=== PATIENT | female | born 1960 | race Caucasian/White ===

== ENCOUNTER 2018-12-25 15:16 | Emergency (ER) | payer OTHER, SELFPAY ==
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
[2018-12-25 15:35] VITALS: BP 166/103; PULSE 101; RESP 16; TEMP 37; O2SAT 96
[2018-12-25 15:53] LABS: Bilirubin Negative (Negative); Blood Negative (Negative); Clarity Clear; Glucose Negative (Negative); Ketones 15 mg/dL (Negative); Leukocyte Esterase Negative (Negative); Nitrite Negative (Negative); Specific Gravity 1.015 (1.005-1.025); Urobilinogen 0.2 EU/dL (Up TO 0.2); pH 5.5 (5-8)
[2018-12-25 15:59] LABS: Abs Immature Grans 0.03 k/cumm (0.0-0.09); Absolute Basophil Count 0.03 k/cumm (0.0-0.2); Absolute Eosinophil Count 0.07 k/cumm (0.0-0.7); Absolute Lymphocyte Count 1.87 k/cumm (1.2-3.4); Absolute Monocyte Count 0.38 k/cumm (0.11-0.7); Basophils % 0.3; Eosinophils % 0.6; HCT 41.9 % (36.0-46.0); HGB 14.1 g/dL (12.0-15.5); Immature Grans % 0.3; Lymphocytes % 16.8; Mean Corp. HGB Concentration 33.7 g/dL (32.0-36.0); Mean Corpuscular Hemoglobin 30.3 pg (27.0-33.0); Mean Corpuscular Volume 90.1 fL (80-95); Mean Platelet Volume 9.3 fL (8.0-11.0); Monocytes % 3.4; Neutrophils % 78.6; Platelet Count 235 x1000/uL (130-400); RBC 4.65 m/cumm (4.00-5.20); RBC Distribution Width 13.8 % (11.7-14.6); White Blood Cell Count 11.16 k/cumm (4.4-10.8)
[2018-12-25 16:09] LABS: Absolute Neutrophil Count 8.77 k/cumm (1.2-6.7)
[2018-12-25 16:12] LABS: ALT 21 U/L (12-78); AST 22 U/L (15-37); Albumin 3.7 g/dL (3.4-5.0); Alkaline Phosphatase 72 U/L (46-116); Bilirubin, Total 0.3 mg/dL (0.2-1.0); Lipase 146 U/L (73-393); Total Protein 6.6 g/dL (6.4-8.2)
[2018-12-25 16:17] LABS: INR 0.9 (0.9-1.1); PTT Activated 21.4 sec (21.0-31.4); Prothrombin Time 9.3 sec (9.3-11.0); Troponin I < 0.02 ng/mL (0.00-0.06)
[2018-12-25] MEDS: fentaNYL 100 MCG/2 ML VIAL 50 MCG IVP (16:33)
[2018-12-25] MEDS: Normal Saline 1,000 ML 1000 ML IV (16:34)
[2018-12-25 16:42] VITALS: PULSE 70; RESP 19; O2SAT 98
[2018-12-25 16:50] VITALS: PULSE 75; RESP 20; O2SAT 98
[2018-12-25] MEDS: Ketorolac 15 MG/ML VIAL (16:53)
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
[2018-12-25 16:59] LABS: ALT 23 U/L (12-78); AST 26 U/L (15-37); Albumin 3.7 g/dL (3.4-5.0); Alkaline Phosphatase 71 U/L (46-116); Anion Gap 12.2 mmol/L (3-11); BUN 14 mg/dL (7-18); Bilirubin, Total 0.3 mg/dL (0.2-1.0); CO2 23.8 mmol/L (21.0-32.0); CREATININE 1.02 mg/dL (0.55-1.02); Calcium 9.2 mg/dL (8.5-10.1); Chloride 104 mmol/L (98-107); Estimated GFR 55.28 (mL/min/1.73m2); Glucose 106 mg/dL (70-100); Potassium 4.1 mmol/L (3.5-5.1); Sodium 140 mmol/L (136-145); Total Protein 6.6 g/dL (6.4-8.2)
[2018-12-25 17:00] VITALS: PULSE 75; RESP 18; O2SAT 99
[2018-12-25 17:05] VITALS: BP 137/79; PULSE 74; PULSE 79; RESP 18; O2SAT 98
[2018-12-25 17:26] VITALS: BP 137/79; PULSE 74; RESP 18; TEMP 37; O2SAT 98
== END 2018-12-25 17:29 | disposition home or self-care (01) ==
LOC: ER 17:11
PROVIDERS: Emergency Provider Emergency Medicine; PCP Physician Assistant Medical
DX: S20.211A Contusion of right front wall of thorax, initial encounter (principal); R07.89 Other chest pain; R10.9 Unspecified abdominal pain; V43.02XA Car driver injured in collision with other type car in nontraffic accident, initial encounter
CPT/HCPCS: 74177; 80053; 80076; 83690; 96361; 96374; 96375; 99285; 71260; 81003; 83735; 84484; 85025; 85610; 85730; 99284; J1885; J3010; J3490

== ENCOUNTER 2019-01-02 08:49 | Emergency (ER) | payer OTHER, SELFPAY ==
[2019-01-02 08:51] VITALS: BP 133/93; PULSE 94; RESP 20; TEMP 36.9; O2SAT 99
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
[2019-01-02] MEDS: Normal Saline 1,000 ML 200 ML IV (09:37)
[2019-01-02 09:41] LABS: Absolute Basophil Count 0.05 k/cumm (0.0-0.2); Absolute Eosinophil Count 0.25 k/cumm (0.0-0.7); Absolute Lymphocyte Count 1.82 k/cumm (1.2-3.4); Absolute Monocyte Count 0.35 k/cumm (0.11-0.7); Absolute Neutrophil Count 3.02 k/cumm (1.2-6.7); Basophils % 0.9; Eosinophils % 4.6; HCT 40.2 % (36.0-46.0); HGB 13.6 g/dL (12.0-15.5); Lymphocytes % 33.2; Mean Corp. HGB Concentration 33.8 g/dL (32.0-36.0); Mean Corpuscular Hemoglobin 30.7 pg (27.0-33.0); Mean Corpuscular Volume 90.7 fL (80-95); Monocytes % 6.4; Neutrophils % 54.9; Platelet Count 244 x1000/uL (130-400); RBC 4.43 m/cumm (4.00-5.20); RBC Distribution Width 13.9 % (11.7-14.6); White Blood Cell Count 5.49 k/cumm (4.4-10.8)
[2019-01-02 09:54] LABS: ALT 18 U/L (12-78); AST 19 U/L (15-37); Albumin 3.6 g/dL (3.4-5.0); Alkaline Phosphatase 75 U/L (46-116); Anion Gap 4.9 mmol/L (3-11); BUN 16 mg/dL (7-18); Bilirubin, Total 0.4 mg/dL (0.2-1.0); CO2 26.1 mmol/L (21.0-32.0); CREATININE 1.03 mg/dL (0.55-1.02); Calcium 8.5 mg/dL (8.5-10.1); Chloride 104 mmol/L (98-107); Estimated GFR 54.66 (mL/min/1.73m2); Glucose 104 mg/dL (70-100); Potassium 4.2 mmol/L (3.5-5.1); Sodium 135 mmol/L (136-145); Total Protein 6.5 g/dL (6.4-8.2)
[2019-01-02] MEDS: Omnipaque 350 MG/ML 100 ML BTL IJ (10:55)
[2019-01-02] MEDS: Omnipaque 350 MG/ML 50 ML BTL IJ (10:56)
[2019-01-02 11:39] VITALS: BP 133/93; PULSE 94; RESP 20; TEMP 36.9; O2SAT 99
== END 2019-01-02 11:41 | disposition home or self-care (01) ==
PROVIDERS: Emergency Provider Emergency Medicine; PCP Physician Assistant Medical
DX: R07.89 Other chest pain (principal); V47.5XXA Car driver injured in collision with fixed or stationary object in traffic accident, initial encounter; Z79.01 Long term (current) use of anticoagulants; Z79.82 Long term (current) use of aspirin
CPT/HCPCS: 36415; 75635; 80053; 96360; 96361; 99285; 85025; 99284; J3490; Q9967

== ENCOUNTER 2019-01-15 07:58 | Emergency (ER) | payer OTHER, SELFPAY ==
[2019-01-15 08:01] VITALS: BP 136/93; PULSE 82; RESP 12; TEMP 37.1; O2SAT 98
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
[2019-01-15 08:50] VITALS: RESP 12
== END 2019-01-15 08:52 | disposition home or self-care (01) ==
PROVIDERS: Emergency Provider Emergency Medicine; PCP Physician Assistant Medical
DX: G90.9 Disorder of the autonomic nervous system, unspecified (principal)
CPT/HCPCS: 99283

== ENCOUNTER 2019-06-13 16:05 | Emergency (ER) | payer MEDICAID, SELFPAY ==
[2019-06-13 16:12] VITALS: BP 161/93; PULSE 74; RESP 16; TEMP 36.5
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
[2019-06-13] MEDS: Acetaminophen 325 MG TAB 650 MG PO (16:41)
[2019-06-13] MEDS: Lidocaine 5% Patch 1 PATCH TP (16:43)
--- NOTE | 2019-06-13 17:24 | DI.VRAD_ITS ---
PROCEDURE INFORMATION: Exam: XR Left Ribs with PA Chest, 3 Views Exam date and time: 06/13/2019 4:35 PM Clinical history: 58 years old, female; Chest wall pain; Left TECHNIQUE: Imaging protocol: XR Left ribs 3 views with PA chest. COMPARISON: CT ABD AORTA CTA W RUNOFF 01/02/2019 10:11 AM FINDINGS: Lungs: Lungs are clear. Pleural space: Mild blunting of the left costophrenic angle. Right costophrenic angle is clear. Heart/Mediastinum: Normal heart silhouette. Vasculature: Ectatic and tortuous aortic root is again identified. Bones/joints: No acute abnormality or aggressive osseous lesion. IMPRESSION: Left costophrenic angle findings could related to atelectasis versus a trace pleural effusion. No other acute thoracic pathology identified. Dictated and Authenticated by: Tom Rice MD. Ordering:DELMA Pascual MD
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
== END 2019-06-13 17:55 | disposition home or self-care (01) ==
PROVIDERS: Emergency Provider Student in an Organized Health Care Education/Training Program; PCP Physician Assistant Medical
DX: S20.212A Contusion of left front wall of thorax, initial encounter (principal); X50.9XXA Other and unspecified overexertion or strenuous movements or postures, initial encounter; I10 Essential (primary) hypertension; Z87.891 Personal history of nicotine dependence
CPT/HCPCS: 71101; 99283

== ENCOUNTER 2019-09-12 15:01 | Outpatient (CLI) | payer MEDICAID, SELFPAY ==
[2019-09-12 15:25] LABS: Absolute Basophil Count 0.03 k/cumm (0.0-0.2); Absolute Eosinophil Count 0.12 k/cumm (0.0-0.7); Absolute Lymphocyte Count 2.24 k/cumm (1.2-3.4); Absolute Monocyte Count 0.39 k/cumm (0.11-0.7); Basophils % 0.5; Eosinophils % 1.9; HCT 42.3 % (36.0-46.0); HGB 14.3 g/dL (12.0-15.5); Lymphocytes % 34.6; Mean Corp. HGB Concentration 33.8 g/dL (32.0-36.0); Mean Corpuscular Hemoglobin 30.5 pg (27.0-33.0); Mean Corpuscular Volume 90.2 fL (80-95); Mean Platelet Volume 9.1 fL (8.0-11.0); Platelet Count 205 x1000/uL (130-400); RBC 4.69 m/cumm (4.00-5.20); RBC Distribution Width 13.2 % (11.7-14.6); White Blood Cell Count 6.48 k/cumm (4.4-10.8)
--- NOTE | 2019-09-12 15:31 | DI.RAD_ITS ---
EXAM: XR CERVICAL SPINE COMP 4-5V CLINICAL HISTORY: NECK PAIN, M54.2 TECHNIQUE: COMPARISON: No exams were available for comparison FINDINGS: Seven views were obtained. The intervertebral disc spaces appear fairly well maintained. There are mild hypertrophic changes of the vertebral endplates and facet joints throughout the cervical region. No compression fracture seen. Neural foramina appear fairly well maintained on oblique views. IMPRESSION: Mild degenerative changes of the cervical spine.
--- NOTE | 2019-09-12 15:36 | DI.RAD_ITS ---
EXAM: XR LUMBAR SPINE COMPLETE CLINICAL HISTORY: LUMBAR RADICULOPATHY, M54.16 COMPARISON: No exams were available for comparison FINDINGS: Five views were obtained. There is a mild left convex lumbar scoliosis. Note is made of a vascular stent, presumably associated with left renal artery. The intervertebral disc spaces are fairly well maintained. Mild hypertrophic spurring of facet joints and vertebral endplates noted throughout the lumbar region. Mild DJD of the SI joints. No evidence of spondylolysis or spondylolisthesis. No fr acture identified. IMPRESSION: Mild degenerative changes of the lumbosacral spine.
[2019-09-12 16:49] LABS: ALT 15 U/L (14-59); AST 17 U/L (15-37); Albumin 3.2 g/dL (3.4-5.0); Alkaline Phosphatase 79 U/L (46-116); Anion Gap 8.1 mmol/L (3-11); BUN 13 mg/dL (7-18); Bilirubin, Total 0.2 mg/dL (0.2-1.0); CO2 26.9 mmol/L (21.0-32.0); CREATININE 1.06 mg/dL (0.55-1.02); Calcium 8.7 mg/dL (8.5-10.1); Chloride 107 mmol/L (98-107); Estimated GFR 52.88 (mL/min/1.73m2); Glucose 109 mg/dL (74-106); Potassium 3.7 mmol/L (3.5-5.1); Sodium 142 mmol/L (136-145); TSH (W/Ref FT4) 1.51 uIU/mL (0.36-3.74); Total Protein 5.9 g/dL (6.4-8.2); Vitamin B12 283 pg/mL (193-986)
== END 2019-09-12 15:21 ==
PROVIDERS: PCP Physician Assistant Medical; Visit Provider Physician Assistant Medical
DX: M54.2 Cervicalgia (principal); M47.812 Spondylosis without myelopathy or radiculopathy, cervical region; M54.16 Radiculopathy, lumbar region; M47.817 Spondylosis without myelopathy or radiculopathy, lumbosacral region; M53.3 Sacrococcygeal disorders, not elsewhere classified
CPT/HCPCS: 36415; 80053; 72050; 72110; 82607; 84443; 85025

== ENCOUNTER 2019-10-14 00:38 | Outpatient (CLI) | payer MEDICAID, SELFPAY ==
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
== END 2019-10-14 00:58 ==
PROVIDERS: PCP Physician Assistant Medical; Visit Provider Physician Assistant Medical
DX: M54.16 Radiculopathy, lumbar region (principal); M79.604 Pain in right leg; M79.605 Pain in left leg; M79.671 Pain in right foot; M79.672 Pain in left foot; N26.1 Atrophy of kidney (terminal)
CPT/HCPCS: 72148

== ENCOUNTER 2019-11-07 10:39 | Emergency (ER) | payer MEDICAID, SELFPAY ==
[2019-11-07 10:44] VITALS: BP 144/86; PULSE 90; RESP 16; TEMP 36.6; O2SAT 96
--- NOTE | 2019-11-07 10:45 | DI.US_ITS ---
EXAM: US LOWER EXTREMITY VENOUS LT CLINICAL HISTORY: L calf pain, no injury, hx of dvt. TECHNIQUE: Left lower extremity venous ultrasound performed using grayscale, color-flow, and spectra l Doppler analysis. COMPARISON: No exams were available for comparison FINDINGS: The left common femoral, femoral and popliteal veins demonstrate normal compressibility, augmentation , and color Doppler. The posterior tibial veins are patent. There is thrombus seen in the left perone al vein. The saphenofemoral junction is patent. IMPRESSION: No DVT. Thrombus seen in the left peroneal vein. Findings were discussed with the emergency departme nt on the date of the examination.
--- NOTE | 2019-11-07 10:49 | W.ED.GENAD ---
Discharge Plan Discharge Details Chief Complaint: Vascular Primary Care Provider: Larissa Cannon ED Provider: Daniel Baron Home Meds and New Rx's Prescriptions: No Action aspirin 81 MG tablet,delayed release (DR/EC) 81 mg PO DAILY RF: 0 ibuprofen [Advil Liqui-Gel] 200 MG capsule 400 mg PO PRN RF: 0 pregabalin [Lyrica] 50 mg Capsule 50 mg PO BID RF: 0 Medical Decision Making 59-year-old female concerned that she may have a DVT. History of clots in 2010, no longer anticoagulated. She appears well, nontoxic. No evidence of tachycardia or hypoxia. Denies any chest pain or shortness of breath. This very well could simply be muscular however certainly need to rule out DVT, will obtain ultrasound. No indication that this is cellulitis. Will obtain CBC, CMP, PT, PTT and INR. Patient signed out at 1124 pending laboratory values and ultrasound. HPI General Mode of arrival: ambulatory. Date/Time Provider Initiated Documentation: 11/07/19 10:40. Limitations to Documentation: no limitations. Information obtained by: patient. HPI Narrative: This is a 59-year-old female who presents to the ER today concerned that she may had a DVT in her left lower extremity. She does report recent travel on a plane from [place] ( Oct 26) as well as in the car more often than usual. She denies any trauma. She has a history of clot in her kidney as well as her aorta, was anticoagulated back in 2010, but not anticoagulated any longer. She has a history of hypertension and headaches. She denies any chest pain or shortness of breath. Denies any rash. Denies fever. She reports the pain is moderate worse with movement and feels like a charley horse. Pain present for 10 days. Patient with a family history of factor V deficiency Related Data Home Medications Medication Instructions Recorded Confirmed aspirin 81 mg PO DAILY tab-cap 04/24/15 11/07/19 ibuprofen [Advil Liqui-Gel] 400 mg PO PRN 09/14/15 11/07/19 pregabalin [Lyrica] 50 mg PO BID 11/07/19 11/07/19 Allergies Allergy/AdvReac Type Severity Reaction Status Date / Time Sulfa (Sulfonamide AdvReac Unknown Nausea Unverified 11/07/19 10:47 Antibiotics) General Stated Complaint: Vascular ORA: 3 Review of Systems Constitutional Constitutional: Denies chills, Denies fatigue, Denies fever(s) and Denies weakness Eyes Eyes: Denies other visual disturbances Cardiovascular Cardiovascular: Denies chest pain and Denies dyspnea Respiratory Respiratory: Denies cough and Denies dyspnea Gastrointestinal Gastrointestinal: Denies abdominal pain Musculoskeletal Musculoskeletal: Denies back pain and Denies tingling Integumentary/Breasts Skin/Breast: Denies rash Neurologic Neurologic: Denies tingling, Reports paresthesias (Patient reports of bilateral lower extremity neuropathy) and Denies weakness Endocrine Endocrine: Denies fatigue Hematologic/Lymphatic Hematologic/Lymphatic: Denies easy bleeding and Denies easy bruising [facility] Social History Smoking/Tobacco Use Status: Former Tobacco Use Alcohol Intake: never Drug use: Never Do you feel safe at home: Yes Do you feel safe in your relationship?: Yes Exam Const General: cooperative, healthy appearing, comfortable and no acute distress Orientation: alert and awake HENGA Head: normal to inspection, normocephalic and atraumatic Mouth: moist mucous membranes Eyes Conjunctivae: conjunctivae normal Neck Neck: normal visual inspection, trachea midline and supple Resp Effort & Inspection: normal respiratory effort Auscultation: clear to auscultation bilaterally Cardio Rate: regular rate Rhythm: regular rhythm Skin General skin exam: no rashes or lesions noted Neuro General: alert and awake Motor: muscle tone normal throughout Sensory Exam: no sensory deficits noted Extrem Right lower extremity: normal to inspection Left lower extremity: full ROM, normal capillary refill and lower leg Details: tenderness (Left posterior mid calf) and other (Neuro, vascular, tendon intact. Positive Homans sign); no erythema, no localized swelling, no palpable cords, edema noted and no pitting edema; no cyanosis and no edema Psych Appearance: grossly normal Mental Status: mental status grossly normal Course Vital Signs Vital signs: Vital Signs Temperature 36.6 C 11/07/19 10:44 Pulse 90 11/07/19 10:44 Respiratory Rate 16 11/07/19 10:44 Blood Pressure 144/86 H 11/07/19 10:44 Pulse Oximetry 96 11/07/19 10:44 Temperature 36.6 C 11/07/19 10:44 Temperature Source Skin 11/07/19 10:44 Pulse 90 11/07/19 10:44 Respiratory Rate 16 11/07/19 10:44 Respiratory Effort Non-Labored 11/07/19 10:44 Blood Pressure 144/86 H 11/07/19 10:44 Blood Pressure Position Sitting 11/07/19 10:44 Pulse Oximetry 96 11/07/19 10:44 Oxygen Delivery Method Room Air 11/07/19 10:44 Oxygen Flow Rate 0 11/07/19 10:44 Pain Level 8 11/07/19 10:44
[2019-11-07 10:50] VITALS: RESP 16
--- NOTE | 2019-11-07 11:33 | ED.GENADUL_ITS ---
Discharge Plan Disposition Patient Disposition: HOME Condition: Stable Discharge Details Chief Complaint: Vascular Clinical Impression: DVT (deep venous thrombosis) Primary Care Provider: Larissa Cannon ED Provider: Milagro Cobos Home Meds and New Rx's Prescriptions: New Eliquis DVT-PE Treat 30D Start 5 mg (74 tabs) tablets,dose pack See Rx Instructions .ROUTE .COMPLEX Qty: 74 RF: 0 Continued aspirin 81 MG tablet,delayed release (DR/EC) 81 mg PO DAILY RF: 0 ibuprofen [Advil Liqui-Gel] 200 MG capsule 400 mg PO PRN RF: 0 pregabalin [Lyrica] 50 mg Capsule 50 mg PO BID RF: 0 Discharge Instructions Instructions: Deep Venous Thrombosis (ED) Additional Instructions: Follow up with primary care provider in 3-5 days. Return to ED sooner if any worsening or concerns. Increase oral fluids. Take medications as directed. Return immediately for any chest pain, shortness of breath or concerns. Referrals: Larissa Cannon PA [Primary Care Provider] - Medical Decision Making Care taken over from SIMONE Green see previously documented HPI and physical. Spoke with technical specialist Vale who reports positive DVT the distal peroneal vein measuring 2.3 cm long. Patient states that she has not been on Plavix x 3 months. She does take an 81 mg aspirin daily. Discussed Eliquis, verbalizes understanding. Patient denies any chest pain or shortness of breath at this time labs are pending. Labs WNL, patient discharged with Eliquis prescription. First dose given in ED. Instructed to follow-up with PCP. Strict return instructions given no return immediately if any shortness of breath or chest pain worsening swelling redness or any concerns, verbalized understanding. HPI General Mode of arrival: ambulatory . Date/Time Provider Initiated Documentation: 11/07/19 10:40 . Limitations to Documentation: no limitations . Information obtained by: patient . Related Data Home Medications Medication Instructions Recorded Confirmed aspirin 81 mg PO DAILY tab-cap 04/24/15 11/07/19 ibuprofen [Advil Liqui-Gel] 400 mg PO PRN 09/14/15 11/07/19 apixaban [Eliquis DVT-PE Treat 30D See Rx Instructions .ROUTE 11/07/19 Start] .COMPLEX #74 dose pk pregabalin [Lyrica] 50 mg PO BID 11/07/19 11/07/19 Previous Rx's Medication Instructions Recorded apixaban [Eliquis DVT-PE Treat 30D See Rx Instructions .ROUTE 11/07/19 Start] .COMPLEX #74 dose pk Allergies Allergy/AdvReac Type Severity Reaction Status Date / Time Sulfa (Sulfonamide AdvReac Unknown Nausea Unverified 11/07/19 10:47 Antibiotics) General Stated Complaint: Vascular ORA: 3 PFSH Social History Smoking/Tobacco Use Status: Former Tobacco Use Alcohol Intake: never Drug use: Never Do you feel safe at home: Yes Do you feel safe in your relationship?: Yes Course Vital Signs Vital signs: Vital Signs Temperature 36.6 C 11/07/19 10:44 Pulse 90 11/07/19 10:44 Respiratory Rate 16 11/07/19 10:44 Blood Pressure 144/86 H 11/07/19 10:44 Pulse Oximetry 96 11/07/19 10:44 Temperature 36.6 C 11/07/19 10:44 Temperature Source Skin 11/07/19 10:44 Pulse 90 11/07/19 10:44 Respiratory Rate 16 11/07/19 10:50 Respiratory Effort Non-Labored 11/07/19 10:50 Respiratory Depth Normal 11/07/19 10:50 Respiratory Pattern Normal 11/07/19 10:50 Blood Pressure 144/86 H 11/07/19 10:44 Blood Pressure Position Sitting 11/07/19 10:44 Pulse Oximetry 96 11/07/19 10:44 Oxygen Delivery Method Room Air 11/07/19 10:44 Oxygen Flow Rate 0 11/07/19 10:44 Pain Level 8 11/07/19 10:50 Sign Out Sign Out Data: Sign Out Comment: Patient pending ultrasound, CBC, CMP and coags. Last updated by Daniel Baron PA at 11/07/19 11:25
[2019-11-07 11:46] LABS: Abs Immature Grans 0.02 k/cumm (0.0-0.09); Absolute Basophil Count 0.02 k/cumm (0.0-0.2); Absolute Eosinophil Count 0.13 k/cumm (0.0-0.7); Absolute Monocyte Count 0.41 k/cumm (0.11-0.7); Absolute Neutrophil Count 4.11 k/cumm (1.2-6.7); Basophils % 0.3; Eosinophils % 1.9; HCT 42.3 % (36.0-46.0); HGB 14.3 g/dL (12.0-15.5); Immature Grans % 0.3 %; Lymphocytes % 31.9; Mean Corp. HGB Concentration 33.8 g/dL (32.0-36.0); Mean Corpuscular Hemoglobin 30.5 pg (27.0-33.0); Mean Corpuscular Volume 90.2 fL (80-95); Mean Platelet Volume 9.2 fL (8.0-11.0); Neutrophils % 59.6; Platelet Count 220 x1000/uL (130-400); RBC 4.69 m/cumm (4.00-5.20); RBC Distribution Width 13.2 % (11.7-14.6); White Blood Cell Count 6.89 k/cumm (4.4-10.8)
[2019-11-07 12:00] LABS: PTT Activated 24.8 sec (21.0-31.4); Prothrombin Time 9.9 sec (9.3-11.0)
[2019-11-07 12:02] LABS: ALT 9 U/L (14-59); AST 13 U/L (15-37); Albumin 3.2 g/dL (3.4-5.0); Alkaline Phosphatase 77 U/L (46-116); Anion Gap 8.2 mmol/L (3-11); BUN 13 mg/dL (7-18); Bilirubin, Total 0.2 mg/dL (0.2-1.0); CO2 26.8 mmol/L (21.0-32.0); CREATININE 0.97 mg/dL (0.55-1.02); Calcium 8.4 mg/dL (8.5-10.1); Chloride 107 mmol/L (98-107); Estimated GFR 58.38 (mL/min/1.73m2); Glucose 93 mg/dL (74-106); Potassium 4.1 mmol/L (3.5-5.1); Sodium 142 mmol/L (136-145); Total Protein 6.1 g/dL (6.4-8.2)
[2019-11-07] MEDS: Apixaban 5 MG TAB 10 MG PO (12:23)
[2019-11-07 12:35] VITALS: BP 144/86; PULSE 90; RESP 16; O2SAT 96
== END 2019-11-07 12:30 | disposition home or self-care (01) ==
PROVIDERS: Physician Assistant; Emergency Provider Registered Nurse Emergency; PCP Physician Assistant Medical
DX: I82.492 Acute embolism and thrombosis of other specified deep vein of left lower extremity (principal); I10 Essential (primary) hypertension
CPT/HCPCS: 36415; 80053; 99284; 85025; 85610; 85730; 93971

== ENCOUNTER 2020-01-17 16:22 | Outpatient (REF) | payer MEDICAID, SELFPAY ==
--- NOTE | 2020-01-17 15:55 | PAPFT_PTH ---
PATIENT: Mandie Escobar LOC: [facility] U#:[id number] AGE/SX: 59/F ROOM: RE01/17/[address]: Melania Sol : 1960 BED: DIS: 01/17/2020 SPEC #: [id number] RECD: 01/20/20 12:22 STATUS: SOCORRO RENevaeh #: [id number] PHIL: 01/17/20 15:[address]: Melania Sol DEPT: [facility] Cytology RECD BY: Ajay Drake Tissues: 1 - CX/ENDOCX FOR PAP SMEARS Procedures: PAP THIN PREP/[facility] Screening Comments: [id number]
== END 2020-01-17 16:42 ==
LOC: LBN 16:22
PROVIDERS: PCP Physician Assistant Medical; Visit Provider Nurse Practitioner Family
DX: Z12.4 Encounter for screening for malignant neoplasm of cervix (principal); Z01.419 Encounter for gynecological examination (general) (routine) without abnormal findings
CPT/HCPCS: 88142

== ENCOUNTER → 2020-08-11 12:09 | Outpatient (REF) | payer MEDICAID, SELFPAY ==
[2020-08-11 20:05] LABS: Ferritin 43 ng/mL (8-252); Vitamin B12 853 pg/mL (193-986)
[2020-08-11 20:06] LABS: Hemoglobin A1C 5.6 % (<5.7)
== END ==
LOC: NCHCN 12:09
PROVIDERS: PCP Physician Assistant Medical; Visit Provider Physician Assistant Medical
DX: G62.9 Polyneuropathy, unspecified (principal)
CPT/HCPCS: 82607; 82728; 83036

== ENCOUNTER → 2020-08-17 01:49 | Outpatient (CLI) | payer MEDICAID, SELFPAY ==
--- NOTE | 2020-08-17 | DI.US_ITS ---
EXAM: US PELVIS TRANSVAGINAL CLINICAL HISTORY: UTERINE FIBROIDS, D25.9, F/U ABNL CT TECHNIQUE: Transabdominal and transvaginal imaging was performed using standard protocol. COMPARISON: US PELVIS TRANSVAG from 12/03/[address] CHEST/ABD/PEL W from 12/25/[address] ABD AORTA CTA W RUNOFF from 01/02/2019 FINDINGS: KIDNEYS: Left renal atrophy.. No evidence of renal calculi. No evidence of hydronephrosis. No renal mass or cyst identified. UTERUS: Anteverted. 6.0 x 4.6 x 4.2 cm Endometrium: Obscured by fibroids. Myometrium: Fibroids are again noted, with the largest measuring 3.1 cm in greatest dimension, slight ly increased from the previous exam where it measured 2.8 cm in greatest dimension. No suspicious fe atures are seen.. Cervix: Unremarkable. OVARIES: Right: Cyst or mass: None. Left: Status post oophorectomy CUL-DE-SAC: Free fluid: None. IMPRESSION: 1. Multiple uterine fibroids, largest measuring 3.1 cm. 2. Unremarkable right ovary. Status post left oophorectomy. 3. Atrophic left kidney. DATA REPOSITORY:
== END ==
PROVIDERS: PCP Physician Assistant Medical; Visit Provider Physician Assistant Medical
DX: D25.9 Leiomyoma of uterus, unspecified (principal); N26.1 Atrophy of kidney (terminal); Z90.721 Acquired absence of ovaries, unilateral
CPT/HCPCS: 76830; 76856

== ENCOUNTER 2021-10-22 04:30 | Outpatient (CLI) | payer MEDICAID, SELFPAY ==
[2021-10-22 12:47] LABS: ALT 21 U/L (14-59); AST 18 U/L (15-37); Albumin 3.2 g/dL (3.4-5.0); Alkaline Phosphatase 80 U/L (46-116); Anion Gap 10.2 mmol/L (3-11); BUN 14 mg/dL (7-18); Bilirubin, Total 0.4 mg/dL (0.2-1.0); CO2 23.8 mmol/L (21.0-32.0); CREATININE 0.9 mg/dL (0.55-1.02); Calcium 8.6 mg/dL (8.5-10.1); Calculated LDL 129 mg/dL (<100); Chloride 105 mmol/L (98-107); Cholesterol 239 mg/dL (<200); Glucose 95 mg/dL (74-106); HDL Cholesterol 94 mg/dL (40-60); Potassium 4.7 mmol/L (3.5-5.1); Sodium 139 mmol/L (136-145); Total Protein 5.9 g/dL (6.4-8.2); Triglyceride 80 mg/dL (<150)
== END 2021-10-22 04:31 | disposition home or self-care (01) ==
LOC: LBO 04:30
PROVIDERS: PCP Physician Assistant Medical; Visit Provider Physician Assistant Medical
DX: I10 Essential (primary) hypertension (principal)
CPT/HCPCS: 36415; 80053; 80061

== ENCOUNTER 2022-01-04 01:51 | Outpatient (CLI) | payer MEDICAID, SELFPAY ==
--- NOTE | 2022-01-04 15:30 | DI.MAMMO_ITS ---
Exam(s) MAMMO SCREENING EXAM: MAMMO SCREENING CLINICAL HISTORY: SCREENING, HEALTH MAINTENANCE EXAM, Z00.8 TECHNIQUE: Mammograms were interpreted according to the usual protocol including computer analysis w Layer CAD system, tomosynthesis and C-view imaging. COMPARISON: 2014 through 2019 FINDINGS: The breasts are composed of scattered fibroglandular densities, Breast Density category B. No suspicious masses or suspicious microcalcifications are seen. No skin thickening or abnormal axillary lymph nodes are seen. There has been no significant change from prior exams. IMPRESSION: BI-RADS Category 1, Negative mammogram Yearly screening mammography is recommended. Breast Density - Category B, scattered fibroglandular densities. A negative radiographic report should not delay biopsy if a dominant or clinically suspicious mass is present. Up to ten percent of cancers are not identified on mammography. A negative report may reinforce clinical impression. Adenosis and dense breasts may obscure an underlying neoplasm. False positive reports average 6 to 10%. Patient will receive a letter notifying them of these results.
== END 2022-01-04 02:11 ==
PROVIDERS: PCP Physician Assistant Medical; Visit Provider Physician Assistant Medical
DX: Z12.31 Encounter for screening mammogram for malignant neoplasm of breast (principal)
CPT/HCPCS: 77063; 77067

== ENCOUNTER 2022-02-11 08:34 | Emergency (ER) | payer MEDICAID, SELFPAY ==
[2022-02-11 08:39] VITALS: BP 108/75; PULSE 66; RESP 16; TEMP 36; O2SAT 99
--- NOTE | 2022-02-11 08:45 | DI.US_ITS ---
Exam(s) US LOWER EXTREMITY VENOUS LT EXAM: US LOWER EXTREMITY VENOUS LT CLINICAL HISTORY: Leg Pain, Hx of DVT TECHNIQUE: Left lower extremity venous ultrasound performed using grayscale, color-flow, and spectra l Doppler analysis. COMPARISON: US US LOWER EXTREMITY VENOUS LT from 11/07/2019 FINDINGS: The left common femoral, femoral and popliteal veins demonstrate normal compressibility, augmentation , and color Doppler. The posterior tibial veins are patent. The saphenofemoral junction is unremarka ble. There is no evidence of a Diallo cyst. The soft tissues are unremarkable. IMPRESSION: 1. No DVT. 2. Results of this exam have been verbally communicated with provider. DATA REPOSITORY:
--- NOTE | 2022-02-11 08:55 | ED.GENADUL_ITS ---
Discharge Plan Disposition Patient Disposition: HOME Condition: Stable Discharge Details Clinical Impression: Left leg pain Primary Care Provider: Larissa Cannon ED Provider: Milagro Cobos Home Meds and New Rx's Prescriptions: Continued aspirin 81 MG tablet,delayed release (DR/EC) 81 mg PO DAILY hydroxyzine pamoate 25 mg capsule 25 mg PO DAILY zolpidem 10 mg tablet 10 mg PO QHS PRN lisinopril 5 mg tablet 10 mg PO DAILY duloxetine 30 mg capsule,delayed release(DR/EC) 30 cap PO DAILY Label Comments: TAKE ONE CAPSULE BY MOUTH ONCE A DAY IN COMBINATION WITH 60 MG CAPSULE doxepin 10 mg capsule 10 mg PO .QHS PRN Label Comments: TAKE 1 TO 2 CAPSULES BY MOUTH AT BEDTIME NEEDED FOR SLEEP eszopiclone 3 mg tablet 3 tab PO .QHS varenicline 1 mg tablet 1 mg PO BID Label Comments: TAKE 1 TABLET BY MOUTH TWICE DAILY Eliquis DVT-PE Treat 30D Start 5 mg (74 tabs) tablets,dose pack See Rx Instructions .ROUTE .COMPLEX Qty: 74 0RF Rx Instructions: take 10 mg by mouth twice daily for 7 days; then 5 mg twice daily Discharge Instructions Instructions: Leg Pain (ED) Additional Instructions: At this time there is no evidence for DVT in your leg. Continue to apply pressure if this relieves the symptoms. Follow up with primary care provider in 3-5 days. Return to ED sooner if any worsening or concerns. Increase oral fluids. Please take Tylenol or Ibuprofen with food every 4-6 hours as needed for pain and swelling. Referrals: Larissa Cannon PA [Primary Care Provider] - 1 week Medical Decision Making US Venous Doppler LLE ordered Preliminary result by US tech, negative for DVT. US negative for DVT, discussed results with patient who verbalized understanding. This text was generated using [employer] dictation system, please disregard any oddities of phrase or misspellings. Imaging Data Radiologic Study: Imaging: Ultrasound Radiologist's impression: EXAM: US LOWER EXTREMITY VENOUS LT CLINICAL HISTORY: Leg Pain, Hx of DVT TECHNIQUE: Left lower extremity venous ultrasound performed using grayscale, color-flow, and spectral Doppler analysis. COMPARISON: US US LOWER EXTREMITY VENOUS LT from 11/07/2019 FINDINGS: The left common femoral, femoral and popliteal veins demonstrate normal compressibility, augmentation, and color Doppler. The posterior tibial veins are patent. The saphenofemoral junction is unremarkable. There is no evidence of a Diallo cyst. The soft tissues are unremarkable. IMPRESSION: 1. No DVT. 2. Results of this exam have been verbally communicated with provider. HPI General Mode of arrival: ambulatory . Date/Time Provider Initiated Documentation: 02/11/22 08:39 . Limitations to Documentation: no limitations . Information obtained by: patient, RN notes reviewed and old records reviewed . HPI Narrative: 61-year-old female presents to the ER with left lower extremity pain for the last 4 days. Patient describes the pain as muscle cramp does not go away she reports that pain is relieved with pressure. Denies any recent injuries. She does have a history of DVT and takes Eliquis daily. Denies any chest pain shortness of breath or any other associated symptoms. Denies any nausea vomiting diarrhea or other muscle cramps. She has a past medical history of protein C deficiency, osteoporosis, hypertension Related Data Home Medications Medication Instructions Recorded Confirmed aspirin 81 mg tablet,delayed 81 mg PO DAILY 04/24/15 02/11/22 release apixaban 5 mg (74 tabs) tablets in See Rx Instructions PO .COMPLEX 11/07/19 02/11/22 a dose pack (Eliquis DVT-PE Treat #74 dose pk 30D Start) hydroxyzine pamoate 25 mg capsule 25 mg PO DAILY 03/23/20 02/11/22 lisinopril 5 mg tablet 10 mg PO DAILY 03/23/20 02/11/22 zolpidem 10 mg tablet 10 mg PO QHS PRN 03/23/20 02/11/22 doxepin 10 mg capsule 10 mg PO .QHS PRN 02/11/22 02/11/22 duloxetine 30 mg capsule,delayed 30 cap PO DAILY 02/11/22 release eszopiclone 3 mg tablet 3 tab PO .QHS 02/11/22 02/11/22 varenicline 1 mg tablet 1 mg PO BID 02/11/22 02/11/22 Previous Rx's Medication Instructions Recorded apixaban 5 mg (74 tabs) tablets in See Rx Instructions PO .COMPLEX 11/07/19 a dose pack (Eliquis DVT-PE Treat #74 dose pk 30D Start) Allergies Allergy/AdvReac Type Severity Reaction Status Date / Time Sulfa (Sulfonamide AdvReac Unknown Nausea Unverified 02/11/22 08:43 Antibiotics) General Stated Complaint: Vascular ORA: 3 Review of Systems All systems reviewed & are unremarkable except as noted in HPI and below Musculoskeletal Musculoskeletal: Reports as per HPI PFSH All Active Problems (Updated 02/11/22 @ 10:01 by Milagro Cobos) Left leg pain (Acute) Protein C deficiency (Acute) Uterine fibroid (Acute) Colon polyp (Acute) PTSD (post-traumatic stress disorder) (Acute) Leg pain, bilateral (Acute) DVT (deep venous thrombosis) (Chronic) Medical History Chronic idiopathic urticaria Grief at loss of child History of neck pain Hypertension Left renal atrophy Lumbar radiculopathy Osteoporosis Protein C deficiency Tobacco abuse Tubular adenoma of colon Vitamin B12 deficiency Vitamin D deficiency Surgical History Colonoscopy - MAC 2007 History of left oophorectomy History of tonsillectomy Oophrectomy, Left 2008 renal stent 2008 Tonsillectomy Family History Father Protein C deficiency Son Substance abuse Hx of hiatal hernia Spherocytosis Daughter Protein C deficiency Factor V Leiden carrier Paternal Grandfather Thyroid disorder Paternal Grandmother Colon cancer Other Diabetes Factor V Leiden Protein S deficiency Social History Smoking/Tobacco Use Status: Former Tobacco Use Smoking risk assessment performed?: Yes Alcohol Intake: never Drug use: Never Household members: none Housing: house Number of Children: 2 current occupation: Teacher Pets and animals: Yes Pets and animals: dog(s) What is your relationship status?: Panel score (0-1 are the most socially isolated patients): 0 What type of physical activity do you participate in: walking Frequency: 5-6 times per week Seatbelt use: always Do you feel safe at home: Yes Do you feel safe in your relationship?: Yes Exam Narrative Exam Narrative: Constitutional: Alert and oriented x3. Appears stated age. Normal body habitus. Head: Normocephalic, no trauma. Eyes: Pupils PERRL, Red reflex noted, EOM's intact. Eyelids symmetrical without lesions, discharge, or swelling. ENT: Bilateral TM's WNL, External ear normal to inspection, no mastoid TTP, swelling, or erythema, Nasal turbinates WNL, no nasal discharge. Normal dentition, Posterior pharynx WNL, no exudate. Chest: RRR, Normal S1, S2, distal pulses intact. Resp: Lungs clear to auscultation bilaterally, no wheezes, rales, or rhonchi. Abdomen: Soft, non-distended, Normoactive bowel sounds all 4 quads. Musculoskeletal: Normal gait, 5/5 strength to all four extremities. Skin: No suspicious rashes or lesions. Capillary refill less than 2 sec. Neurologic: Cranial nerves II-XII intact. Alert and oriented x 3. Motor: No def icits noted. Sensory: Intact bilaterally all 4 extremities. Reflexes: DTR's intact bilaterally.. Hematologic/Lymphatic: No ecchymosis, no lymphadenopathy. Course Vital Signs Vital signs: Vital Signs Temperature 36 C L 02/11/22 08:39 Pulse 66 02/11/22 08:39 Respiratory Rate 16 02/11/22 08:39 Blood Pressure 108/75 02/11/22 08:39 Pulse Oximetry 99 02/11/22 08:39 Temperature 36 C L 02/11/22 08:39 Temperature Source Temporal Artery Scan 02/11/22 08:39 Pulse 66 02/11/22 08:39 Respiratory Rate 16 02/11/22 08:39 Respiratory Effort 02/11/22 08:39 Blood Pressure 108/75 02/11/22 08:39 Blood Pressure Position Sitting 02/11/22 08:39 Pulse Oximetry 99 02/11/22 08:39 Oxygen Delivery Method Room Air 02/11/22 08:39 Oxygen Flow Rate 0 02/11/22 08:39 Pain Level 2 02/11/22 08:39
[2022-02-11 09:02] VITALS: RESP 16
== END 2022-02-11 10:13 | disposition home or self-care (01) ==
PROVIDERS: Emergency Provider Registered Nurse Emergency; PCP Physician Assistant Medical
DX: M79.662 Pain in left lower leg (principal)
CPT/HCPCS: 99284; 93971; 99283

== ENCOUNTER 2022-08-05 14:14 | Outpatient (REF) | payer MEDICAID, SELFPAY ==
[2022-08-05 16:00] LABS: Abs Immature Grans 0.01 10^3/uL (0.0-0.06); Absolute Basophil Count 0.04 10^3/uL (0.0-0.2); Absolute Eosinophil Count 0.12 10^3/uL (0.0-0.7); Absolute Lymphocyte Count 1.78 10^3/uL (1.2-3.4); Absolute Monocyte Count 0.26 10^3/uL (0.1-0.8); Absolute Neutrophil Count 3.11 10^3/uL (1.2-6.7); Basophils % 0.8; Eosinophils % 2.3; HCT 43.9 % (36.0-46.0); HGB 14.4 g/dL (11.2-15.7); Immature Grans % 0.2; Lymphocytes % 33.5; MCH 29.5 pg (27.0-33.0); MCHC 32.8 % (32.0-36.0); MCV 90 fL (80-95); MPV 9.6 fL (8.0-11.0); Monocytes % 4.9; Neutrophils % 58.3; Platelet Count 224 10^3/uL (130-400); RBC 4.88 10^6/uL (3.93-5.22); WBC 5.32 10^3/uL (4.4-10.8)
[2022-08-05 16:45] LABS: Hemoglobin A1C 5.9 % (<5.7)
[2022-08-05 17:03] LABS: ALT 19 U/L (14-59); AST 21 U/L (15-37); Albumin 3.3 g/dL (3.4-5.0); Alkaline Phosphatase 74 U/L (46-116); Anion Gap 7.6 mmol/L (3-11); BUN 21 mg/dL (7-18); Bilirubin, Total 0.3 mg/dL (0.2-1.0); CO2 24.4 mmol/L (21.0-32.0); Calcium 8.6 mg/dL (8.5-10.1); Chloride 105 mmol/L (98-107); Ferritin 62 ng/mL (8-252); Glucose 146 mg/dL (74-106); Magnesium 2.1 mg/dL (1.8-2.4); Sodium 137 mmol/L (136-145); Total Protein 6.3 g/dL (6.4-8.2)
== END 2022-08-05 14:15 | disposition home or self-care (01) ==
LOC: NCHCN 14:14
PROVIDERS: PCP Physician Assistant Medical; Visit Provider Physician Assistant Medical
DX: G25.81 Restless legs syndrome (principal); G62.89 Other specified polyneuropathies; R73.09 Other abnormal glucose; R79.89 Other specified abnormal findings of blood chemistry
CPT/HCPCS: 80053; 82728; 83036; 83735; 85025

== ENCOUNTER 2023-01-27 15:27 | Outpatient (REF) | payer MEDICAID, SELFPAY ==
[2023-01-27 16:06] LABS: Hemoglobin A1C 5.7 % (<5.7)
[2023-01-27 16:23] LABS: ALT 25 U/L (14-59); AST 20 U/L (15-37); Albumin 3.4 g/dL (3.4-5.0); Alkaline Phosphatase 77 U/L (46-116); Anion Gap 7.2 mmol/L (3-11); BUN 16 mg/dL (7-18); Bilirubin, Total 0.2 mg/dL (0.2-1.0); CO2 25.8 mmol/L (21.0-32.0); Calcium 8.8 mg/dL (8.5-10.1); Calculated LDL 143 mg/dL (<100); Chloride 105 mmol/L (98-107); Cholesterol 262 mg/dL (<200); Estimated GFR 62.91 (mL/min/1.73m2); Glucose 94 mg/dL (74-106); HDL Cholesterol 90 mg/dL (40-60); Potassium 4.7 mmol/L (3.5-5.1); Sodium 138 mmol/L (136-145); Total Protein 6.4 g/dL (6.4-8.2); Triglyceride 146 mg/dL (<150)
== END 2023-01-27 15:28 | disposition home or self-care (01) ==
LOC: NCHCN 15:27
PROVIDERS: PCP Physician Assistant Medical; Visit Provider Physician Assistant Medical
DX: I10 Essential (primary) hypertension (principal); R73.03 Prediabetes
CPT/HCPCS: 80053; 80061; 83036

== ENCOUNTER 2023-03-05 16:52 | Emergency (ER) | payer MEDICAID, SELFPAY ==
[2023-03-05 16:56] VITALS: BP 115/74; PULSE 78; RESP 18; TEMP 36.8; O2SAT 96
--- NOTE | 2023-03-05 17:10 | W.ED.GENAD ---
Discharge Plan Disposition Patient Disposition: Home Discharge Details Clinical Impression: Constipation Primary Care Provider: Larissa Cannon ED Provider: Milagro Cobos Home Meds and New Rx's Prescriptions: Continued aspirin 81 MG tablet,delayed release (DR/EC) 81 mg PO DAILY hydroxyzine pamoate 25 mg capsule 25 mg PO DAILY zolpidem 10 mg tablet 10 mg PO QHS PRN lisinopril 5 mg tablet 10 mg PO DAILY duloxetine 30 mg capsule,delayed release(DR/EC) 30 cap PO DAILY Patient Comments: TAKE ONE CAPSULE BY MOUTH ONCE A DAY IN COMBINATION WITH 60 MG CAPSULE doxepin 10 mg capsule 10 mg PO .QHS PRN Patient Comments: TAKE 1 TO 2 CAPSULES BY MOUTH AT BEDTIME NEEDED FOR SLEEP eszopiclone 3 mg tablet 3 tab PO .QHS varenicline 1 mg tablet 1 mg PO BID Patient Comments: TAKE 1 TABLET BY MOUTH TWICE DAILY Eliquis DVT-PE Treat 30D Start 5 mg (74 tabs) tablets,dose pack See Rx Instructions .ROUTE .COMPLEX Qty: 74 0RF Rx Instructions: take 10 mg by mouth twice daily for 7 days; then 5 mg twice daily Victoza 3-Robert 0.6 mg/0.1 mL (18 mg/3 mL) pen injector 0.6 mg SUBCUT DAILY Patient Comments: Inject 0.6 mg subcutaneously once a day x 4 weeks, then increase to 1.2 mg once a DAY Discharge Instructions Instructions: Constipation (ED) Additional Instructions: Work-up indicates moderate constipation which could be attributing to your pain. No evidence of appendicitis or obstruction. Follow up with primary care provider in 3-5 days. Return to ED sooner if any worsening or concerns. Increase oral fluids. Please take Tylenol with food every 4-6 hours as needed for pain and swelling. Referrals: Larissa Cannon PA [Primary Care Provider] - 3 days Medical Decision Making 62-year-old female presents to the ER with the chief complaint of right lower quadrant abdominal pain which began approximately 45 minutes prior to arrival. She reports sharp shooting pain which radiates into her right flank. She did take some Rolaids prior to arrival thinking it was gas pains. She recently was treated for bronchitis with prednisone and azithromycin. No significant diarrhea however she did have 1 episode on none since. Denies any nausea vomiting no fever or chills. She does have a history of protein C deficiency uterine fibroids PTSD, DVTs she has had an oophorectomy on the left, hypertension she also has 1 kidney and a renal stent. Work-up ordered including CBC CMP lipase, urinalysis. Differential diagnosis includes but not limited to appendicitis, ovarian cyst, kidney stone, gastroenteritis, UTI CT scan shows constipation and a stable uterine mass. Mass is unchanged. No evidence of appendicitis there is diverticulosis without diverticulitis. Labs show no leukocytosis, glucose 165 lipase 143 trace ketones trace blood on urinalysis. No evidence of UTI Fleets enema and Toradol ordered. Informed by staff electronic warfare officer that patient was successful and had a bowel movement she reports she feels much better and would like to be discharged home. This text was generated using [employer] system, please disregard any oddities of phrase or misspellings. Imaging Data Radiologic Study: Imaging: CT Scan Radiologist's impression: CT CHEST/ABD/PEL W 12/25/2018 4:18 PM FINDINGS: Liver: Normal. No mass. Gallbladder and bile ducts: Normal. No calcified stones. No ductal dilation. Pancreas: Normal. No ductal dilation. Spleen: Incidental note made of accessory splenic ossicle. Next lines Adrenal glands: Normal. No mass. Kidneys and ureters: Marked left renal atrophy again noted. Stomach and bowel: Diverticulosis without acute diverticulitis. Moderate fecal retention pattern noted. No abnormal bowel distention or wall thickening. Appendix: The appendix is well seen, within normal limits. Intraperitoneal space: Unremarkable. No free air. No significant fluid collection. Vasculature: Unremarkable. No abdominal aortic aneurysm. Lymph nodes: Unremarkable. No enlarged lymph nodes. Urinary bladder: Unremarkable as visualized. NIKO BELCHER Preliminary Radiology Report EDUCATION PROGRAM SPECIALIST (QA) DISCREPANCY? If there is a discrepancy between the preliminary and final interpretation, please notify [facility] via [email or web address]. If you do not have access to our QA portal, call our QA team at [phone] CONFIDENTIALITY STATEMENT This report is intended only for the use of the referring physician, and only in accordance with law, If you received this in error, call [phone] Page 2 of 2 Reproductive: There appears to be a soft tissue mass involving the uterus. It measures approximately 3 cm in diameter at the endometrial level. It does not appear significantly changed compared to prior exam. Bones/joints: Unremarkable. No acute fracture. Soft tissues: Unremarkable. IMPRESSION: 1. Probable constipated change noted in the colon. 2. Impression new. Consider follow-up uterine mass, stable. Thank you for allowing us to participate in the care of your patient. Dictated and Authenticated by: Maria Isabel Leon MD Lab Data Lab results reviewed: Yes I reviewed the patient's lab results. Labs: Laboratory Tests Range/Units 03/05/23 03/05/23 03/05/23 17:05 17:13 17:13 WBC (4.4-10.8) 10^3/uL 9.12 RBC (3.93-5.22) 10^6/uL 4.54 Hgb (11.2-15.7) g/dL 13.7 Hct (36.0-46.0) % 40.9 MCV (80-95) fL 90 MCH (27.0-33.0) pg 30.2 MCHC (32.0-36.0) % 33.5 RDW (11.7-14.6) % 13.5 Plt Count (130-400) 10^3/uL 251 MPV (8.0-11.0) fL 8.8 Immature Gran % 0.4 Neutrophils % 77.4 Lymphocytes % 17.1 Monocytes % 4.9 Eosinophils % 0.0 Basophils % 0.2 Nucleated RBC % (0.0-0.3) % 0.0 Absolute Neutrophils (1.2-6.7) 10^3/uL 7.05 H Absolute Lymphocytes (1.2-3.4) 10^3/uL 1.56 Absolute Monocytes (0.1-0.8) 10^3/uL 0.45 Absolute Eosinophils (0.0-0.7) 10^3/uL 0.00 Absolute Basophils (0.0-0.2) 10^3/uL 0.02 Sodium (136-145) mmol/L 139 Potassium (3.5-5.1) mmol/L 4.3 Chloride (98-107) mmol/L 106 Carbon Dioxide (21.0-32.0) mmol/L 25.1 Anion Gap (3-11) mmol/L 7.9 BUN (7-18) mg/dL 21 H Creatinine (0.55-1.02) mg/dL 1.0 Est GFR (CKD-EPI 2020) (mL/min/1.73m2) 62.91 Glucose (74-106) mg/dL 165 H Calcium (8.5-10.1) mg/dL 9.5 Magnesium (1.8-2.4) mg/dL 2.3 Total Bilirubin (0.2-1.0) mg/dL 0.2 AST (15-37) U/L 12 L ALT (14-59) U/L 19 Alkaline Phosphatase (46-116) U/L 67 Total Protein (6.4-8.2) g/dL 6.4 Albumin (3.4-5.0) g/dL 3.5 Lipase (16-77) U/L 143 H Urine Color (Yellow) Yellow Urine Clarity (Clear) Clear Urine pH (5-8) 5.0 Ur Specific [place] (1.005-1.025) 1.020 Urine Protein (Negative) mg/dL Negative Urine Ketones (Negative) mg/dL Trace H Urine Blood (Negative) Trace-intact H Urine Nitrite (Negative) Negative Urine Bilirubin (Negative) Negative Urine Urobilinogen (Up to 0.2) mg/dL 0.2 Ur Leukocyte Esterase (Negative) Negative Urine RBC (0-2) HPF 0-2 Urine WBC (0-5) HPF Negative Ur Epithelial Cells (Negative) HPF Rare Urine Crystals (Negative) HPF Many Calcium Oxalate Urine Bacteria (Negative) HPF Rare Urine Casts (Negative) LPF Negative Urine Mucus (Negative) Negative Ur Culture Indicated? No Urine Glucose (Negative) mg/dL Negative HPI General Mode of arrival: ambulatory. Date/Time Provider Initiated Documentation: 03/05/23 16:52. Limitations to Documentation: no limitations. Information obtained by: patient, RN notes reviewed and old records reviewed. HPI Narrative: 62-year-old female presents to the ER with the chief complaint of right lower quadrant abdominal pain which began approximately 45 minutes prior to arrival. She reports sharp shooting pain which radiates into her right flank. She did take some Rolaids prior to arrival thinking it was gas pains. She recently was treated for bronchitis with prednisone and azithromycin. No significant diarrhea however she did have 1 episode on none since. Denies any nausea vomiting no fever or chills. She does have a history of protein C deficiency uterine fibroids PTSD, DVTs she has had an oophorectomy on the left, hypertension she also has 1 kidney and a renal stent. Related Data Home Medications Medication Instructions Recorded Confirmed aspirin 81 mg tablet,delayed 81 mg PO DAILY 04/24/15 03/05/23 release apixaban 5 mg (74 tabs) tablets in See Rx Instructions PO .COMPLEX 11/07/19 03/05/23 a dose pack (Eliquis DVT-PE Treat #74 dose pk 30D Start) hydroxyzine pamoate 25 mg capsule 25 mg PO DAILY 03/23/20 03/05/23 lisinopril 5 mg tablet 10 mg PO DAILY 03/23/20 03/05/23 zolpidem 10 mg tablet 10 mg PO QHS PRN 03/23/20 03/05/23 doxepin 10 mg capsule 10 mg PO .QHS PRN 02/11/22 03/05/23 duloxetine 30 mg capsule,delayed 30 cap PO DAILY 02/11/22 03/05/23 release eszopiclone 3 mg tablet 3 tab PO .QHS 02/11/22 03/05/23 varenicline 1 mg tablet 1 mg PO BID 02/11/22 03/05/23 liraglutide 0.6 mg/0.1 mL (18 mg/3 0.6 mg subcut DAILY 03/05/23 03/05/23 mL) subcutaneous pen injector (Victoza 3-Robert) Previous Rx's Medication Instructions Recorded apixaban 5 mg (74 tabs) tablets in See Rx Instructions PO .COMPLEX 11/07/19 a dose pack (Eliquis DVT-PE Treat #74 dose pk 30D Start) Allergies Allergy/AdvReac Type Severity Reaction Status Date / Time Sulfa (Sulfonamide AdvReac Unknown Nausea Unverified 03/05/23 17:44 Antibiotics) General Stated Complaint: Abd Prob ORA: 3 Review of Systems All systems reviewed & are unremarkable except as noted in HPI and below Gastrointestinal Gastrointestinal: Reports as per HPI, Reports abdominal pain, Denies nausea and Denies vomiting PFSH All Active Problems (Updated 03/05/23 @ 19:06 by Milagro Cobos NP) Constipation (Acute) Protein C deficiency (Acute) Uterine fibroid (Acute) Colon polyp (Acute) PTSD (post-traumatic stress disorder) (Acute) Leg pain, bilateral (Acute) DVT (deep venous thrombosis) (Chronic) Medical History Chronic idiopathic urticaria Grief at loss of child History of neck pain Hypertension Left renal atrophy Lumbar radiculopathy Osteoporosis Protein C deficiency Tobacco abuse Tubular adenoma of colon Vitamin B12 deficiency Vitamin D deficiency Surgical History Colonoscopy - MAC 2008 History of left oophorectomy History of tonsillectomy Oophrectomy, Left 2008 renal stent 2008 Tonsillectomy Family History Father Protein C deficiency Son Substance abuse Hx of hiatal hernia Spherocytosis Daughter Protein C deficiency Factor V Leiden carrier Paternal Grandfather Thyroid disorder Paternal Grandmother Colon cancer Other Diabetes Factor V Leiden Protein S deficiency Social History Smoking/Tobacco Use Status: Former Tobacco Use Smoking risk assessment performed?: Yes Alcohol Intake: never Drug use: Never Household members: none Housing: house Number of Children: 2 current occupation: Teacher Pets and animals: Yes Pets and animals: dog(s) What is your relationship status?: Panel score (0-1 are the most socially isolated patients): 0 What type of physical activity do you participate in: walking Frequency: 5-6 times per week Seatbelt use: always Do you feel safe at home: Yes Do you feel safe in your relationship?: Yes Exam Narrative Exam Narrative: Constitutional: Alert and oriented x3. Appears stated age. Normal body habitus. Head: Normocephalic, no trauma. Eyes: Pupils PERRL, Red reflex noted, EOM's intact. Eyelids symmetrical without lesions, discharge, or swelling. ENT: Bilateral TM's WNL, External ear normal to inspection, no mastoid TTP, swelling, or erythema, Nasal turbinates WNL, no nasal discharge. Normal dentition, Posterior pharynx WNL, no exudate. Chest: RRR, Normal S1, S2, distal pulses intact. Resp: Lungs clear to auscultation bilaterally, no wheezes, rales, or rhonchi. Abdomen: Soft, non-distended, Normoactive bowel sounds all 4 quads. Tenderness with palpation right lower quadrant. Musculoskeletal: Normal gait, 5/5 strength to all four extremities. Skin: No suspicious rashes or lesions. Capillary refill less than 2 sec. Neurologic: Cranial nerves II-XII intact. Alert and oriented x 3. Motor: No deficits noted. Sensory: Intact bilaterally all 4 extremities. Reflexes: DTR's intact bilaterally.. Hematologic/Lymphatic: No ecchymosis, no lymphadenopathy. Course Vital Signs Vital signs: Vital Signs Temperature 36.8 C 03/05/23 16:56 Pulse 78 03/05/23 16:56 Respiratory Rate 18 03/05/23 16:56 Blood Pressure 115/74 03/05/23 16:56 Pulse Oximetry 96 03/05/23 16:56 Temperature 36.8 C 03/05/23 16:56 Temperature Source Oral 03/05/23 16:56 Pulse 78 03/05/23 16:56 Respiratory Rate 18 03/05/23 16:56 Blood Pressure 115/74 03/05/23 16:56 Pulse Oximetry 96 03/05/23 16:56 Oxygen Delivery Method Room Air 03/05/23 16:56 Oxygen Flow Rate 0 03/05/23 16:56 Pain Level 8 03/05/23 16:56
[2023-03-05 17:12] LABS: Bilirubin Negative (Negative); Blood Trace-intact (Negative); Clarity Clear (Clear); Glucose Negative (Negative); Ketones Trace mg/dL (Negative); Leukocyte Esterase Negative (Negative); Nitrite Negative (Negative); Urobilinogen 0.2 mg/dL (Up to 0.2)
[2023-03-05 17:18] LABS: Abs Immature Grans 0.04 10^3/uL (0.0-0.06); Absolute Basophil Count 0.02 10^3/uL (0.0-0.2); Absolute Lymphocyte Count 1.56 10^3/uL (1.2-3.4); Absolute Monocyte Count 0.45 10^3/uL (0.1-0.8); Absolute Neutrophil Count 7.05 10^3/uL (1.2-6.7); Basophils % 0.2; HCT 40.9 % (36.0-46.0); HGB 13.7 g/dL (11.2-15.7); Immature Grans % 0.4; Lymphocytes % 17.1; MCH 30.2 pg (27.0-33.0); MCHC 33.5 % (32.0-36.0); MCV 90 fL (80-95); MPV 8.8 fL (8.0-11.0); Monocytes % 4.9; Neutrophils % 77.4; Platelet Count 251 10^3/uL (130-400); RBC 4.54 10^6/uL (3.93-5.22); RDW 13.5 % (11.7-14.6); RDW-SD 44.7 fL; WBC 9.12 10^3/uL (4.4-10.8)
[2023-03-05] MEDS: Normal Saline 1,000 ML 250 ML IV (17:25)
[2023-03-05 17:26] LABS: Bacteria Rare HPF (Negative); C & S Indicated? No; Casts Negative LPF (Negative); Crystals Many Calcium Oxalate HPF (Negative); Epithelial Cells Rare HPF (Negative); Mucus Negative (Negative); RBC 0-2 HPF (0-2); WBC Negative HPF (0-5)
[2023-03-05] MEDS: MORPHine 10 MG/ML VIAL 2 MG IVP ×2 (17:26→17:50)
[2023-03-05] MEDS: Ondansetron 4 MG/2 ML VIAL IVP (17:28)
[2023-03-05 17:37] LABS: ALT 19 U/L (14-59); AST 12 U/L (15-37); Albumin 3.5 g/dL (3.4-5.0); Alkaline Phosphatase 67 U/L (46-116); Anion Gap 7.9 mmol/L (3-11); BUN 21 mg/dL (7-18); Bilirubin, Total 0.2 mg/dL (0.2-1.0); CO2 25.1 mmol/L (21.0-32.0); Calcium 9.5 mg/dL (8.5-10.1); Chloride 106 mmol/L (98-107); Estimated GFR 62.91 (mL/min/1.73m2); Glucose 165 mg/dL (74-106); Lipase 143 U/L (16-77); Magnesium 2.3 mg/dL (1.8-2.4); Potassium 4.3 mmol/L (3.5-5.1); Sodium 139 mmol/L (136-145); Total Protein 6.4 g/dL (6.4-8.2)
--- NOTE | 2023-03-05 17:40 | DI.CT_ITS ---
Exam(s) CT ABDOMEN PELVIS W EXAM: CT ABDOMEN PELVIS W CLINICAL HISTORY: RLQ Abd pain. TECHNIQUE: Imaging Protocol: Axial computed tomography images with coronal and sagittal reformatted images were created and reviewed CONTRAST MATERIAL: Intravenous: Omnipaque-350 100cc Oral: None COMPARISON: CT CT ABD AORTA CTA W RUNOFF from 01/02/2019 FINDINGS: VISUALIZED LUNG BASES: Small nodule in the lateral basal segment of the left lower lobe is unchanged from CT scan December 2018 and therefore benign. Also unchanged subpleural 3 millimeter nodule the late ral aspect of the right lower lobe, also unchanged. There are no pleural effusions.. ABDOMEN: There is no ascites. LIVER: There are no significant focal hepatic lesions evident. No dilated intrahepatic ducts. GALLBLADDER/BILIARY: No obvious gallbladder pathology. CBD is not dilated. PANCREAS: No evidence of pancreatic mass nor dilatation of the pancreatic duct. SPLEEN: Spleen is not enlarged. No obvious intrasplenic lesions. Splenic and portal veins are paten t. ADRENALS: There are no significant adrenal masses. KIDNEYS:Severely atrophic left kidney is again noted. There is presently a small 2 millimeter calcul us on the dependent wall of the left renal pelvis. No calculi in the nondilated left ureter. Right kidney exhibits normal size. There are no solid masses in the right kidney. There is a double collecting system in the right kidn ey. The superior pole moiety is associated with a dilated right ureter which contains a possible sma ll 1-2 millimeter calculus on the right side.. This is a few cm above the ureterovesical junction.. There are no radiopaque calculi in the nondistended urinary bladder. ABDOMINAL AORTA: Calcified but not enlarged. There is atherosclerotic plaque in the aorta at the lev el the celiac artery takeoff. There is sparing of the SMA takeoff. No evidence of true abdominal ao rtic aneurysm nor aneurysm of the iliac arteries. LYMPH NODES:There is no retroperitoneal nor paraaortic adenopathy. ABDOMINAL WALL: No evidence of significant anterior abdominal wall nor inguinal hernia. GI: Both jejunal an I ileal loops are prominent, either element of enteritis or I ileus related to th e calculus in the right ureter. PELVIS: GI: No evidence of appendicitis.Sigmoid diverticulosis but no obvious acute diverticulitis. LYMPH NODES: There is no intrapelvic nor inguinal adenopathy. REPRODUCTIVE: Uterus is enlarged and lobulated. There is around the mass again noted central uterus measuring approximately 3 x 3 cm. Other smaller mass also no difficult to determine if this dominant mass is is fibroid or endometrial pathology. URINARY BLADDER: No calculi nor obvious masses evident OSSEOUS: No fractures and no significant osseous lesions. IMPRESSION: 1. Compared to the prior CT scan of December 2018 there is now an element of obstruction of the superior pole moiety ureter of the double collecting system of the right kidney. The obstruction level is in the right-side of the pelvis a few cm above the ureterovesical junction and below the iliac vessels. There is a small hyperdensity in the ureter at this level which may be a tiny calculus but cannot e xclude neoplasm. Close follow-up including urology consultation for this finding recommended. 2. Chronically severely atrophic opposite-left kidney again noted. There is a tiny calculus in the l eft renal pelvis evident. 3. Sigmoid diverticulosis. No acute diverticulitis. No evidence of acute appendicitis. 4. Lobulated uterus. Again noted is a 3 cm mass in the uterus which is either a subserosal fibroid o r endometrial lesion. It is unchanged from 01/02/2019 CT scan. First read by [facility] Final report called by myself to ER physician 03/06/2023 RADIATION DOSE DELIVERED: 712.59mGy.cm Total DLP DATA REPOSITORY: All CT scans at this facility are submitted to the National Radiology Data Registry (NRDR) Dose Index Registry (DIR) with the [employer] (ACR). RADIATION OPTIMIZATION: All CT scans at this facility use at least one of these dose optimization te chniques: automated exposure control; mA and/or kV adjustment per patient size (includes targeted exa ms where dose is matched to clinical indication); or iterative reconstruction.
[2023-03-05] MEDS: Omnipaque 350 MG/ML 100 ML BTL IJ (17:58)
[2023-03-05] MEDS: Normal Saline - Diluent 50 ML VIAL IJ (17:59)
[2023-03-05] MEDS: Normal Saline Flush 10 ML SYR IVP (17:59)
--- NOTE | 2023-03-05 18:20 | DI.VRAD_ITS ---
PROCEDURE INFORMATION: Exam: CT Abdomen And Pelvis With Contrast Exam date and time: 03/05/2023 5:57 PM Age: 62 years old Clinical indication: Other: Rlq abd pain TECHNIQUE: Imaging protocol: Computed tomography of the abdomen and pelvis with contrast. Radiation optimization: All CT scans at this facility use at least one of these dose optimization techniques: automated exposure control; mA and/or kV adjustment per patient size (includes targeted exams where dose is matched to clinical indication); or iterative reconstruction. Contrast material: OMNIPAQUE 350; Contrast volume: 100 ml; Contrast route: INTRAVENOUS (IV); COMPARISON: CT CHEST/ABD/PEL W 12/25/2018 4:18 PM FINDINGS: Liver: Normal. No mass. Gallbladder and bile ducts: Normal. No calcified stones. No ductal dilation. Pancreas: Normal. No ductal dilation. Spleen: Incidental note made of accessory splenic ossicle. Next lines Adrenal glands: Normal. No mass. Kidneys and ureters: Marked left renal atrophy again noted. Stomach and bowel: Diverticulosis without acute diverticulitis. Moderate fecal retention pattern noted. No abnormal bowel distention or wall thickening. Appendix: The appendix is well seen, within normal limits. Intraperitoneal space: Unremarkable. No free air. No significant fluid collection. Vasculature: Unremarkable. No abdominal aortic aneurysm. Lymph nodes: Unremarkable. No enlarged lymph nodes. Urinary bladder: Unremarkable as visualized. Reproductive: There appears to be a soft tissue mass involving the uterus. It measures approximately 3 cm in diameter at the endometrial level. It does not appear significantly changed compared to prior exam. Bones/joints: Unremarkable. No acute fracture. Soft tissues: Unremarkable. IMPRESSION: 1. Probable constipated change noted in the colon. 2. Impression new. Consider follow-up uterine mass, stable. Dictated and Authenticated by: Maria Isabel Leon MD. Ordering:SHILA Humphrey MD
[2023-03-05] MEDS: Ketorolac 15 MG/ML VIAL IVP (18:45)
--- NOTE | 2023-03-06 22:15 | W.ED.FU ---
Date of service: 03/06/23 Time of Service: 22:15 Follow Up Plan: Was contacted by radiology department for over read of the vRad report regarding CT abdomen pelvis, concerning CT for possible ureteral stone versus possible neoplasm. Attempted to contact patient via phone, left voicemail on her cell phone. Have requested for follow-up appointment with urology team to discuss CT findings and proceed accordingly.
--- NOTE | 2023-03-06 22:17 | NUR.NOTE ---
Referral faxed to [facility] to f/u within a week for an abnormal ct read r kidney.Nursing Note:
== END 2023-03-05 19:12 | disposition home or self-care (01) ==
PROVIDERS: Emergency Provider Registered Nurse Emergency; PCP Physician Assistant Medical
DX: K59.00 Constipation, unspecified (principal); R93.5 Abnormal findings on diagnostic imaging of other abdominal regions, including retroperitoneum
CPT/HCPCS: 36415; 80053; 83690; 96361; 96374; 96375; 99285; 74177; 81003; 81015; 83735; 85025; 99284; J1885; J2270; J2405; J3490

== ENCOUNTER 2023-03-08 17:46 | Outpatient (CLI) | payer MEDICAID, SELFPAY ==
--- NOTE | 2023-03-08 | DI.RAD_ITS ---
Exam(s) XR CHEST 2V PA LATERAL EXAM: XR CHEST 2V PA LATERAL CLINICAL HISTORY: BRONCHITIS J20.9. TECHNIQUE: 2D digital imaging was performed. COMPARISON: No exams were available for comparison FINDINGS: 2 views: Heart size is normal. The mediastinum is not widened. Lungs are clear. No infiltrates nor pleural effusions. IMPRESSION: No acute pulmonary findings. DATA REPOSITORY: RADIATION DOSE DELIVERED:
== END 2023-03-08 18:06 ==
LOC: DI 17:49
PROVIDERS: PCP Physician Assistant Medical; Visit Provider Physician Assistant Medical
DX: J20.9 Acute bronchitis, unspecified (principal)
CPT/HCPCS: 71046

== ENCOUNTER 2023-03-13 12:47 | Outpatient (CLI) | payer MEDICAID, SELFPAY ==
[2023-03-13 13:14] LABS: BUN 16 mg/dL (7-18); CREATININE 1.2 mg/dL (0.55-1.02); Calcium 8.7 mg/dL (8.5-10.1); Chloride 109 mmol/L (98-107); Estimated GFR 50.55 (mL/min/1.73m2); Glucose 115 mg/dL (74-106); Lipase 194 U/L (16-77); Sodium 143 mmol/L (136-145)
== END 2023-03-13 12:48 | disposition home or self-care (01) ==
LOC: LBO 12:48
PROVIDERS: PCP Physician Assistant Medical; Visit Provider Physician Assistant Medical
DX: R74.8 Abnormal levels of other serum enzymes (principal); N26.1 Atrophy of kidney (terminal)
CPT/HCPCS: 36415; 80048; 83690

== ENCOUNTER 2023-04-10 03:01 | Outpatient (CLI) | payer MEDICAID, SELFPAY ==
--- NOTE | 2023-04-10 08:15 | DI.NM_ITS ---
Exam(s) NM DTPA RENOGRAM W LASIX CLINICAL HISTORY: ? hydronephrosis obstructive,n13,30. COMPARISON: No exams were available for comparison EXAMINATION: Dose: 10.5 millicuries technetium 99 MDP DtPA Images: Immediately for 1 minute followed by dynamic for 30 minutes. Twentymg Lasix was administered after peak uptake in the renal cortex at approximately 12 min. FINDINGS: Time to peak: Right: 30 seconds (< 5 min normal) Left: 20 seconds (< 5 min normal) Curve Appearance: Right: T1/2 (10.1 minutes Left: Flat curve. Very little activity. The time activity curve reveals no delay in the washout of the right collecting system. Very little activity of the left collecting system. (< 10 min normal, 10-15 min Low grade obstruction, 15-20 min moderate,. 20 min high grade) Split renal function: Right: 97 % Left: 3 % IMPRESSION: 1. Dilated, non-obstructed right collecting system. 2. Atrophic left kidney with 3 percent of total renal function.
[2023-04-10] MEDS: Furosemide 20 MG/2 ML VIAL IVP (14:17)
== END 2023-04-10 03:21 ==
LOC: DI 03:01
PROVIDERS: PCP Physician Assistant Medical; Visit Provider Nurse Practitioner Gerontology
DX: N26.1 Atrophy of kidney (terminal); N13.2 Hydronephrosis with renal and ureteral calculous obstruction
CPT/HCPCS: 78708; J1941

== ENCOUNTER 2023-05-03 16:56 | Outpatient (REF) | payer MEDICAID, SELFPAY ==
[2023-05-03 21:02] LABS: Hemoglobin A1C 5.5 % (<5.7)
[2023-05-03 21:20] LABS: Anion Gap 12.1 mmol/L (3-11); BUN 24 mg/dL (7-18); CO2 22.9 mmol/L (21.0-32.0); Calcium 8.7 mg/dL (8.5-10.1); Chloride 111 mmol/L (98-107); Estimated GFR 62.91 (mL/min/1.73m2); Glucose 106 mg/dL (74-106); Lipase 88 U/L (16-77); Potassium 4.8 mmol/L (3.5-5.1); Sodium 146 mmol/L (136-145)
== END 2023-05-03 16:57 | disposition home or self-care (01) ==
LOC: NCHCN 16:56
PROVIDERS: PCP Physician Assistant Medical; Visit Provider Physician Assistant Medical
DX: R73.03 Prediabetes (principal); R74.8 Abnormal levels of other serum enzymes
CPT/HCPCS: 80048; 83690; 83036

== ENCOUNTER 2023-05-30 06:28 | Day surgery (SDC) | payer MEDICAID, SELFPAY ==
[2023-05-30 06:25] VITALS: BMI 27.2
--- NOTE | 2023-05-30 06:25 | W.ANESPRE ---
General Info Date of Service Date Performed: 05/30/23 Height: 4 ft 11 in Weight: 61.235 kg Body Mass Index (BMI): 27.2 Surgical Procedure: Operation Date: 05/30/23 07:35 Proposed Procedure Side Surgeon du Sosa MD Meds Allergies and Home Medications Allergies Allergy/AdvReac Type Severity Reaction Status Date / Time Sulfa (Sulfonamide AdvReac Unknown Nausea Verified 05/30/23 06:42 Antibiotics) Home Medication Medication Instructions Recorded aspirin 81 mg tablet,delayed 81 mg PO DAILY 04/24/15 release apixaban 5 mg (74 tabs) tablets in See Rx Instructions PO .COMPLEX 11/07/19 a dose pack ([facility] DVT-PE Treat #74 dose pk 30D Start) hydroxyzine pamoate 25 mg capsule 25 mg PO DAILY 03/23/20 lisinopril 5 mg tablet 10 mg PO DAILY 03/23/20 eszopiclone 3 mg tablet 9 mg PO .QHS 03/16/23 ondansetron HCl 4 mg tablet 4 mg PO Q8H PRN nausea and 04/13/23 vomiting #10 tabs tamsulosin 0.4 mg capsule (Flomax) 0.4 mg PO DAILY #10 caps 04/13/23 bisacodyl 5 mg tablet,delayed 5 mg PO ONCE #4 tabs 04/20/23 release (Dulcolax (bisacodyl)) polyethylene glycol 3350 17 17 g PO ONCE #238 grams 04/20/23 gram/dose oral powder duloxetine 30 mg capsule,delayed 30 mg PO DAILY 05/11/23 release duloxetine 60 mg capsule,delayed 60 mg PO DAILY 05/11/23 release (Cymbalta) amitriptyline 25 mg tablet 25 mg PO DIRECTED 05/26/23 Current Visit Medications: Current Medications Generic Name Dose Route Start Last Admin Trade Name Freq PRN Reason Stop Dose Admin Ringer's Solution 1,000 mls @ 80 mls/hr 05/30/23 06:00 IV 05/30/23 23:59 INFUSION [facility] IV Miscellaneous Supplies 1 each 05/30/23 06:00 Iv Access IV 05/30/23 23:59 DIRECTED PAMELA Sodium Chloride 0 ml 05/30/23 06:00 Normal Saline Flush 10 Ml Syr IV 05/30/23 23:59 PRN PRN Sodium Chloride 0 ml 05/30/23 06:00 Normal Saline 10 Ml Vial IJ 05/30/23 23:59 DIRECTED PRN Sterile Water 0 ml 05/30/23 06:00 Water,Injection,Sterile 10 Ml Vial IJ 05/30/23 23:59 DIRECTED PRN PFSH Active Problems Active Problems: Problem Status Onset Code DVT (deep venous thrombosis) I82.409 Leg pain, bilateral M79.604, M79.605 PTSD (post-traumatic stress disorder) F43.10 Colon polyp K63.5 Uterine fibroid D25.9 Protein C deficiency D68.59 Positive colorectal cancer screening using Cologuard test R19.5 Medical History Medical History (Updated 05/26/23 @ 10:43 by Tod Olson) Acute deep vein thrombosis (DVT) of left lower extremity and in Aorta, f/u with provider, and youth teacher Dr. Andrea (last seen 2 weeks ago at time of this pre op call 05/26/23) told her to hold blood thinner for 24 hours not 48 hours, and vascular surgery MD is Dr. Mccullough (seen 1 year ago) Chronic idiopathic urticaria Chronic pain of right lower extremity COVID-19 Elevated lipase Grief at loss of child History of neck pain History of prediabetes Hypertension Insomnia Left renal atrophy Lumbar radiculopathy Neuropathy Osteoporosis Protein C deficiency Rash, skin Renal atrophy Tobacco abuse Tobacco use disorder Tubular adenoma Tubular adenoma of colon Urticaria at injection site Vitamin B12 deficiency Vitamin D deficiency Surgical History Surgical History Colonoscopy - MAC 2007 History of left oophorectomy History of tonsillectomy Oophrectomy, Left 2008 renal stent 2008 Tonsillectomy Tobacco Smoking/Tobacco Use Status: Former Tobacco Use Alcohol Alcohol Intake: never Substance Use Substance use: Never Vital Signs and Lab Results Vital Signs Most Recent Vital Signs in EMR: Temp Pulse Resp BP Pulse Ox 37.0 C 87 18 147/97 H 97 05/30/23 06:37 05/30/23 06:37 05/30/23 06:37 05/30/23 06:37 05/30/23 06:37 Lab Results Blood Type / Crossmatch: No Data to Display Complete Blood Count: No Data to Display Complete Metabolic Panel: Sodium 146 mmol/L (136-145) H 05/03/23 15:30 Potassium 4.8 mmol/L (3.5-5.1) 05/03/23 15:30 Chloride 111 mmol/L (98-107) H 05/03/23 15:30 Carbon Dioxide 22.9 mmol/L (21.0-32.0) 05/03/23 15:30 BUN 24 mg/dL (7-18) H 05/03/23 15:30 Creatinine 1.0 mg/dL (0.55-1.02) 05/03/23 15:30 Est GFR (CKD-EPI 2020) 62.91 (mL/min/1.73m2) 05/03/23 15:30 Calcium 8.7 mg/dL (8.5-10.1) 05/03/23 15:30 Glucose 106 mg/dL (74-106) 05/03/23 15:30 Hemoglobin A1c 5.5 % (<5.7) 05/03/23 15:30 Liver Function Panel: No Data to Display Coagulation Panel: No Data to Display Cardiac Panel: No Data to Display Arterial Blood Gas: No Data to Display Venous Blood Gas: No Data to Display Pancreas Panel: Lipase 88 U/L (16-77) H 05/03/23 15:30 Thyroid Panel: No Data to Display Infectious Disease: No Data to Display Blood Cultures: No Data to Display Toxicology Panel: No Data to Display Anesthesia Assessment and Plan Anesthesia History Personal History: No History of Anesthesia Complications Family History: No Family History of Anesthesia Complications Exercise Tolerance Exercise Tolerance: Metabolic Equivalents>4 Pertinent Negatives Pertinent Negatives: No Symptoms of GERD, No Major Cardiovascular Symptoms or Complaints and No Major Pulmonary Symptoms or Complaints Cardiac & Pulmonary Exam Cardiac Exam: Normal S1/S2 Heart Sounds Pulmonary Exam: Clear Bilateral Breath Sounds Implantable Cardiac Device Does patient have a Pacemaker or an ICD?: No Airway Exam Known Difficult Airway: No Mallampati Class: 2 Mouth Opening: Normal (> 3cm) Thyromental Distance: Greater than 3 cm Neck Range of Motion: Full ROM Neck Circumference: Normal Teeth Condition: Normal Dentition ASA Classification ASA Score: ASA 3 Emergency Case?: No NPO Status NPO Status: NPO Clears >2 hours, Solids >8 hours Anesthesia Plan Resuscitation Status: Full Code Anesthesia Technique: General Anesthesia Airway Planned: Natural Airway Monitors Used: Standard Monitors
[2023-05-30 06:37] VITALS: BP 147/97; PULSE 87; RESP 18; TEMP 37; O2SAT 97
[2023-05-30] MEDS: Lactated Ringers 1,000 ML 80 ML IV (06:51)
--- NOTE | 2023-05-30 07:37 | W.PM.HP.N ---
Date of service: 05/30/23 Time of Service: 07:37 Assessment and Plan Assessment and plan (1) Encounter for colorectal cancer screening: Status: Acute Assessment and plan: 62-year-old woman with increased risk because of personal history of polyps but no symptoms due for colorectal cancer surveillance colonoscopy. History of Present Illness Narrative: 62-year-old woman has a history of colon polyps. She denies a family history of colon cancer. She is not having any symptoms. She cannot member exactly when her last colonoscopy was but says she is overdue. She also did a Cologuard test at home was positive. She denies any intra-abdominal surgical history. PFSH All Active Problems (Updated 05/30/23 @ 07:38 by Dean Sosa MD) Encounter for colorectal cancer screening (Acute) DVT (deep venous thrombosis) (Chronic) Leg pain, bilateral (Acute) PTSD (post-traumatic stress disorder) (Acute) Colon polyp (Acute) Uterine fibroid (Acute) Protein C deficiency (Acute) Positive colorectal cancer screening using Cologuard test (Acute) Medical History (Updated 05/30/23 @ 07:38 by Dean Sosa MD) Acute deep vein thrombosis (DVT) of left lower extremity and in Aorta, f/u with provider, and customer complaint clerk Dr. Andrea (last seen 2 weeks ago at time of this pre op call 05/26/23) told her to hold blood thinner for 24 hours not 48 hours, and vascular surgery MD is Dr. Mccullough (seen 1 year ago) Chronic idiopathic urticaria Chronic pain of right lower extremity COVID-19 Elevated lipase Grief at loss of child History of neck pain History of prediabetes Hypertension Insomnia Left renal atrophy Lumbar radiculopathy Neuropathy Osteoporosis Protein C deficiency Rash, skin Renal atrophy Tobacco abuse Tobacco use disorder Tubular adenoma Tubular adenoma of colon Urticaria at injection site Vitamin B12 deficiency Vitamin D deficiency Surgical History Colonoscopy - [facility] 2007 History of left oophorectomy History of tonsillectomy Oophrectomy, Left 2008 renal stent 2008 Tonsillectomy Family History Father Protein C deficiency Son Substance abuse Hx of hiatal hernia Spherocytosis Daughter Protein C deficiency Factor V Leiden carrier Paternal Grandfather Thyroid disorder Paternal Grandmother Colon cancer Other Diabetes Factor V Leiden Protein S deficiency Social History Smoking/Tobacco Use Status: Former Tobacco Use Quit Date: 09/25/20 Smoking risk assessment performed?: Yes Alcohol Intake: never Drug use: Never Household members: none Housing: house Number of Children: 2 current occupation: Teacher Pets and animals: Yes Pets and animals: dog(s) What is your relationship status?: Panel score (0-1 are the most socially isolated patients): 0 What type of physical activity do you participate in: walking Frequency: 5-6 times per week Seatbelt use: always Do you feel safe at home: Yes Do you feel safe in your relationship?: Yes Additional Social history: lives alone Meds Allergies and Home Medications Allergies Allergy/AdvReac Type Severity Reaction Status Date / Time Sulfa (Sulfonamide AdvReac Unknown Nausea Verified 05/30/23 06:42 Antibiotics) Home Medications Medication Instructions Recorded Confirmed Type aspirin 81 mg tablet,delayed 81 mg PO DAILY 04/24/15 05/30/23 History release apixaban 5 mg (74 tabs) tablets in See Rx Instructions PO .COMPLEX 11/07/19 05/30/23 Rx a dose pack ([employer] DVT-PE Treat #74 dose pk 30D Start) hydroxyzine pamoate 25 mg capsule 25 mg PO DAILY 03/23/20 05/30/23 History lisinopril 5 mg tablet 10 mg PO DAILY 03/23/20 05/30/23 History eszopiclone 3 mg tablet 9 mg PO .QHS 03/16/23 05/30/23 History ondansetron HCl 4 mg tablet 4 mg PO Q8H PRN nausea and 04/13/23 05/30/23 Rx vomiting #10 tabs tamsulosin 0.4 mg capsule (Flomax) 0.4 mg PO DAILY #10 caps 04/13/23 05/30/23 Rx bisacodyl 5 mg tablet,delayed 5 mg PO ONCE #4 tabs 04/20/23 05/26/23 Rx release (Dulcolax (bisacodyl)) polyethylene glycol 3350 17 17 g PO ONCE #238 grams 04/20/23 05/26/23 Rx gram/dose oral powder duloxetine 30 mg capsule,delayed 30 mg PO DAILY 05/11/23 05/30/23 History release duloxetine 60 mg capsule,delayed 60 mg PO DAILY 05/11/23 05/30/23 History release (Cymbalta) amitriptyline 25 mg tablet 25 mg PO DIRECTED 05/26/23 05/30/23 History Exam Narrative Exam Narrative: General: Nontoxic and comfortable Neuro: Alert and oriented x3 Psych: Good mood and affect, good insight and understanding into her condition Chest: Clear to auscultation bilateral Heart: Regular Results Last Vital Signs Temp 98.6 F 05/30/23 06:37 Pulse 87 05/30/23 06:37 Resp 18 05/30/23 06:37 BP 147/97 H 05/30/23 06:37 Pulse Ox 97 05/30/23 06:37 Time Spent Time spent with Patient: <40 minutes Time was spent: counseling the patient
--- NOTE | 2023-05-30 09:02 | BOWEL_PTH ---
PATIENT: Mandie Escobar LOC: [facility] U#:[id number] AGE/SX: 62/F ROOM: RE05/30/[address]: Dean Sosa : 1960 BED: DIS: 05/30/2023 SPEC #: [id number] RECD: 05/30/23 12:45 STATUS: [facility] #: [id number] PHIL: 05/30/23 09:[address]: Dean Sosa DEPT: Surgical Specimen RECD BY: Laurel Sánchez ENTERED: 05/30/23 12:47 SP TYPE: Bowel OTHR DR: Larissa Cannon Tissues: 1 - BIOPSY BOWEL 2 - BIOPSY BOWEL Procedures: GROSS AND MICRO LEVEL 4 Comments: [id number]
[2023-05-30 09:16] VITALS: BP 108/69; PULSE 69; RESP 16; TEMP 36.3; O2SAT 96
--- NOTE | 2023-05-30 09:16 | COLE_ITS ---
Date of service: 05/30/23 Time of Service: 09:16 Colonoscopy Report Procedure: Procedures performed: 1. Colonoscopy with snare polypectomy x5 2. Fulguration/destruction of colon polyps x5 Preoperative diagnosis: Surveillance colonoscopy, colon polyps Postoperative diagnosis: Colon and rectal polyps, sigmoid diverticulosis, incomplete colonoscopy Surgeon: Renetta Sosa Anesthesia: Frank Indication for procedure: Patient is a 62-year-old woman with personal history of adenomatous polyps. She denies any symptoms. There is no family history of colorectal cancer or polyps. Findings: Unable to navigate beyond a very redundant and twisted sigmoid colon(35cm) despite multiple re?positioning techniques. Diverticular changes are present in the sigmoid colon. Multiple adenomatous polyps seen and removed with snare technique and/or destroyed with the tip of the hot snare. This is from the sigmoid colon(35cm) and into the rectum. Surveillance/follow-up recommendations: CT colonography or repeat colonoscopic attempt is recommended. At minimum a flexible sigmoidoscopy should be done in 3 years to remove more polyps from the rectosigmoid region. Cologuard is not recommended. Complications: None Blood loss: Minimal Specimens:?? YES Quality of Prep: Excellent Procedure in detail: Written consent was obtained from the patient who was in agreement with the risks, benefits and indications of the procedure.? We went to the endoscopy suite and laid the patient in left lateral decubitus position.? Anesthesia was administered which was tolerated well.? A timeout was performed and when we are all in agreement we began the procedure. Digital rectal exam and visual examination was performed and within normal limits.? A well?lubricated colonoscope was advanced without difficulty into the sigmoid colon.? Significant redundancy was found and we were unable to get the scope beyond the sigmoid colon despite multiple pressure techniques and repositioning techniques multiple times. The scope kept looping in though the lumen was visible, we could not advance it without undue amounts of pressure and I was concerned that I might cause of the sheer injury. The scope was then slowly withdrawn.?? Retroflexion was performed in the rectum.? The findings/int erventions are noted above. The scope was then removed and the patient tolerated the procedure well and was then taken back to the PACU in hemodynamically stable condition.
--- NOTE | 2023-05-30 09:28 | W.PM.DSUDISC ---
Date of service: 05/30/23 Time of Service: 09:28 Discharge Plan Disposition Patient Disposition: Home Condition: Good Discharge Details Attending Provider: Dean Sosa Primary Care Provider: Larissa Cannon Home Meds and New Rx's Prescriptions: No Action bisacodyl [Dulcolax (bisacodyl)] 5 mg tablet,delayed release (DR/EC) 5 mg PO ONCE Qty: 4 0RF Rx Instructions: Take per colonoscopy instructions provided by ordering providers office polyethylene glycol 3350 17 gram/dose powder 17 g PO ONCE Qty: 238 0RF Rx Instructions: Take per colonoscopy instructions provided by ordering providers office ondansetron HCl 4 mg tablet 4 mg PO Q8H PRN (Reason: nausea and vomiting) Qty: 10 0RF tamsulosin [Flomax] 0.4 mg capsule 0.4 mg PO DAILY Qty: 10 0RF aspirin 81 MG tablet,delayed release (DR/EC) 81 mg PO DAILY hydroxyzine pamoate 25 mg capsule 25 mg PO DAILY lisinopril 5 mg tablet 10 mg PO DAILY duloxetine [Cymbalta] 60 mg capsule,delayed release(DR/EC) 60 mg PO DAILY Rx Instructions: take in combination with 30mg duloxetine daily for a total of 90 mgs. duloxetine 30 mg capsule,delayed release(DR/EC) 30 mg PO DAILY Rx Instructions: take with 60 mg cymbalta daily for a total of 90 mgs eszopiclone 3 mg tablet 9 mg PO .QHS Eliquis DVT-PE Treat 30D Start 5 mg (74 tabs) tablets,dose pack See Rx Instructions .ROUTE .COMPLEX Qty: 74 0RF Rx Instructions: take 10 mg by mouth twice daily for 7 days; then 5 mg twice daily amitriptyline 25 mg tablet 25 mg PO DIRECTED Patient Comments: TAKE 1 TO 2 TABLETS BY MOUTH EVERY NIGHT. REPLACE DOXEPIN Discharge Instructions Additional Instructions: FINDINGS: Multiple polyps were found and removed from the lower portion of your colon and rectum. The front portions were unable to be visualized. This is because of your colon being twisted and it was unsafe to try to put more pressure to get past it. Because of that, the front portion of your colon should be visualized with a different method called CT colonography. Stand Alone Forms: Colonoscopy Post Instructions Activity:: Activity as Tolerated Diet:: As Tolerated Discharge Orders Discharge Orders: Discharge Order (Routine); Ordered 05/30/23 Ordered By: Dean Sosa DS: Diagnosis Discharge Diagnosis (1) Encounter for colorectal cancer screening: Status: Acute
[2023-05-30 09:46] VITALS: BP 111/80; PULSE 64; RESP 17; TEMP 36.6; O2SAT 96
--- NOTE | 2023-05-30 11:17 | W.ANESPOSTOP ---
Postoperative Evaluation Date, Time and Location Date Performed: 05/30/23 Time Performed: 09:55 Patient Location: Day Surgery Unit Vital Signs Most Recent Imported Vital Signs: Most Recent Vital Signs Temp Pulse Resp BP Pulse Ox 36.6 C 64 17 111/80 96 05/30/23 09:46 05/30/23 09:46 05/30/23 09:46 05/30/23 09:46 05/30/23 09:46 Pain Score Most Recent Pain Score: Most Recent Pain Score Pain Level 0 05/30/23 09:46 Assessment Mental Status: Awake (Alert & Oriented to Patient Baseline) Airway and Respiratory Function: Patent airway with normal (patient baseline) respiratory exam Cardiovascular Function: Hemodynamically Stable Hydration Status: Adequately Hydrated Nausea & Vomiting: No Nausea or Vomiting Pain: Pt. Denies Any Pain Peripheral Nerve Block: Patient did not receive a nerve block
== END 2023-05-30 10:05 | disposition home or self-care (01) ==
PROVIDERS: PCP Physician Assistant Medical; Visit Provider Student in an Organized Health Care Education/Training Program
PROC: 0DJD8ZZ Inspection of Lower Intestinal Tract, Via Natural or Artificial Opening Endoscopic (ICD-10-PCS; CPT 45378; principal; 2023-05-30 07:30)
DX: Z12.11 Encounter for screening for malignant neoplasm of colon (principal); D12.5 Benign neoplasm of sigmoid colon; K57.30 Diverticulosis of large intestine without perforation or abscess without bleeding; K62.1 Rectal polyp; Z86.010 Personal history of colon polyps; Z53.8 Procedure and treatment not carried out for other reasons
CPT/HCPCS: 45338; 45333; 88305; J2704

== ENCOUNTER 2023-06-12 13:27 | Outpatient (REF) | payer MEDICAID, SELFPAY ==
[2023-06-12 16:45] LABS: Lipase 294 U/L (16-77)
== END 2023-06-12 13:28 | disposition home or self-care (01) ==
LOC: NCHCN 13:27
PROVIDERS: Visit Provider Physician Assistant Medical
DX: R74.8 Abnormal levels of other serum enzymes (principal)
CPT/HCPCS: 83690

== ENCOUNTER 2024-02-07 16:17 | Outpatient (REF) | payer SELFPAY ==
[2024-02-07 20:44] LABS: Abs Immature Grans 0.03 10^3/uL (0.0-0.06); Absolute Basophil Count 0.03 10^3/uL (0.0-0.2); Absolute Eosinophil Count 0.12 10^3/uL (0.0-0.7); Absolute Lymphocyte Count 2.78 10^3/uL (1.2-3.4); Absolute Monocyte Count 0.41 10^3/uL (0.1-0.8); Absolute Neutrophil Count 5.18 10^3/uL (1.2-6.7); Basophils % 0.4 %; Eosinophils % 1.4 %; HCT 42.9 % (36.0-46.0); HGB 13.9 g/dL (11.2-15.7); Immature Grans % 0.4 %; Lymphocytes % 32.5 %; MCH 30.2 pg (27.0-33.0); MCHC 32.4 % (32.0-36.0); MCV 93 fL (80-95); MPV 10.2 fL (8.0-11.0); Monocytes % 4.8 %; Neutrophils % 60.5 %; Platelet Count 230 10^3/uL (130-400); RBC 4.61 10^6/uL (3.93-5.22); RDW 13.2 % (11.7-14.6); RDW-SD 44.9 fL; WBC 8.55 10^3/uL (4.4-10.8)
[2024-02-07 21:10] LABS: ALT 25 U/L (14-59); AST 15 U/L (15-37); Albumin 3.3 g/dL (3.4-5.0); Alkaline Phosphatase 71 U/L (46-116); Anion Gap 10.7 mmol/L (3-11); BUN 20 mg/dL (7-18); Bilirubin, Total 0.3 mg/dL (0.2-1.0); CO2 26.3 mmol/L (21.0-32.0); CREATININE 1.1 mg/dL (0.55-1.02); Calcium 8.7 mg/dL (8.5-10.1); Calculated LDL 109 mg/dL (<100); Chloride 108 mmol/L (98-107); Cholesterol 231 mg/dL (<200); Estimated GFR 55.76 (mL/min/1.73m2); Glucose 121 mg/dL (74-106); HDL Cholesterol 88 mg/dL (40-60); Potassium 4.2 mmol/L (3.5-5.1); Sodium 145 mmol/L (136-145); TSH 1.39 uIU/Ml (0.36-3.74); Total Protein 5.7 g/dL (6.4-8.2); Triglyceride 171 mg/dL (<150)
[2024-02-07 21:12] LABS: Hemoglobin A1C 5.8 % (<5.7)
[2024-02-07 21:39] LABS: FREE T4 0.88 ng/dL (0.76-1.46)
== END 2024-02-07 16:18 | disposition home or self-care (01) ==
LOC: NCHCN 16:17
PROVIDERS: PCP Physician Assistant Medical; Visit Provider Physician Assistant Medical
DX: F43.21 Adjustment disorder with depressed mood (principal); I10 Essential (primary) hypertension; D68.59 Other primary thrombophilia
CPT/HCPCS: 80053; 80061; 83036; 84439; 84443; 85025

== ENCOUNTER → 2024-02-29 03:42 | Outpatient (CLI) | payer MEDICARE, SELFPAY ==
--- NOTE | 2024-02-29 | DI.CTLCSR_ITS ---
Exam(s) CT CHEST LUNG CANCER SCREEN EXAM: CT CHEST LUNG CANCER SCREEN CLINICAL HISTORY: NICOTINE DEPENDENCE F17.210 SCREENING FOR LUNG CANCER. TECHNIQUE: Imaging Protocol: Low Dose Technique CONTRAST MATERIAL: None COMPARISON: CT CT CHEST/ABD/PEL W from 12/25/2018 CR XR CHEST 2V PA LATERAL from 03/08/2023 FINDINGS: CHEST: LUNGS: There is a small peripheral fissure related nodule in the right lung measuring 4 millimeters, unchanged from 2019. No other focal right lung findings. In the left lung there is a noncalcified 5 millimeter nodule in the left lower lobe which was also previously present in 2019.. There are no n ew ominous nodules nor confluent infiltrates nor pleural effusions MEDIASTINUM: There is no obvious hilar nor mediastinal adenopathy. CARDIAC: Heart size is normal. There is no pericardial effusion.Caliber of the thoracic aorta is wit hin normal limits. OTHER: Atrophic left kidney, unchanged from 2019. Normal size right kidney. OSSEOUS: No significant osseous lesions.. IMPRESSION: 1. Single small nodule in each lung, both unchanged from prior CT scan of December 2018. 2. No new nodules nor infiltrates nor intrathoracic adenopathy. Atrophic left kidney again noted. T his was also present in 2019. 3. Lung RADS Cat 2 - Benign Appearance / Behavior: Nodules with a very low likelihood of becoming a c linically active cancer due to size or lack of growth Lung-RADS 1.0 CATEGORIES: Category 0 - Prior chest CT exam(s) being located for comparison. Category 1 - Annual screening in 12 months. No nodules or definitely benign nodules. Category 2 - Annual screening in 12 months. Benign appearance. Nodules with low likelihood of becomin g active cancer. Category 3 - 6-month follow-up. Probably benign. Short-term follow-up suggested. Nodules with low lik elihood of becoming active cancer. Category 4A - 3-month follow-up and CT/PET if >8 mm in size. Suspicious finding. Findings which requi re additional testing. Category 4B - Findings which require additional testing and tissue sampling. Category 4X - Category 3 or 4 nodules with additional features or imaging findings that increases the suspicion of malignancy. Modifier S- Potentially clinically significant findings (non lung cancer) RADIATION DOSE DELIVERED: 64.01mGy.cm Total DLP DATA REPOSITORY: All CT scans at this facility are submitted to the National Radiology Data Registry (NRDR) Dose Index Registry (DIR) with the [employer] (A[employer]). RADIATION OPTIMIZATION: All CT scans at this facility use at least one of these dose optimization te chniques: automated exposure control; mA and/or kV adjustment per patient size (includes targeted exa ms where dose is matched to clinical indication); or iterative reconstruction.
== END ==
PROVIDERS: PCP Physician Assistant Medical; Visit Provider Physician Assistant Medical
DX: Z12.2 Encounter for screening for malignant neoplasm of respiratory organs (principal); F17.210 Nicotine dependence, cigarettes, uncomplicated; R91.8 Other nonspecific abnormal finding of lung field
CPT/HCPCS: 71271

== ENCOUNTER 2024-03-24 18:07 | Emergency (ER) | payer MEDICARE, SELFPAY ==
[2024-03-24] VITALS (81 sets, daily range): BP systolic 53–179; BP diastolic 21–108; PULSE 63–93; RESP 11–33; TEMP 35.4; O2SAT 97
--- NOTE | 2024-03-24 18:30 | DI.CT_ITS ---
Exam(s) CT ABDOMEN PELVIS W EXAM: CT ABDOMEN PELVIS W CLINICAL HISTORY: rght flank pain. TECHNIQUE: Imaging Protocol: Axial computed tomography images with coronal and sagittal reformatted images were created and reviewed CONTRAST MATERIAL: Intravenous: Omnipaque-350 100cc Oral: None COMPARISON: CT CT ABDOMEN PELVIS W from 03/05/2023 FINDINGS: VISUALIZED LUNG BASES: No nodules nor pleural effusions evident. ABDOMEN: There is no ascites. LIVER: There are no focal hepatic lesions evident. No dilated intrahepatic ducts. GALLBLADDER/BILIARY: No obvious gallbladder pathology. CBD is not dilated. PANCREAS: No evidence of pancreatic mass nor dilatation of the pancreatic duct. SPLEEN: Spleen is not enlarged. No obvious intrasplenic lesions. Splenic and portal veins are paten t. ADRENALS: There are no significant adrenal masses. KIDNEYS:Left kidney is again noted be severely atrophic. There is an ostial stent at the origin of t he left renal artery. 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 The lower pole m oiety ureter is noted to be dilated and this is related to a calculus in the right UVJ level which me asures approximately 3 mm.. ABDOMINAL AORTA: Calcified but not enlarged. LYMPH NODES:There is no retroperitoneal nor paraaortic adenopathy. ABDOMINAL WALL: No evidence of significant anterior abdominal wall nor inguinal hernia. GI: There is no evidence of bowel obstruction, free air, nor abscess. PELVIS: GI: No evidence of appendicitis.Sigmoid diverticulosis without evidence of acute diverticulitis. LYMPH NODES: No intrapelvic adenopathy evident. REPRODUCTIVE: Multiple uterine fibroids are again noted. Some are again noted be calcified. The larg est fibroid measures 3 by 3 cm. URINARY BLADDER: Collapsed. OSSEOUS: No fractures and no significant osseous lesions. No fractures. IMPRESSION: 1. The main acute finding is a 3 millimeter calculus at the right UVJ lower aspect of the lower pole moiety ureter. Mild hydronephrosis above this level. 2. There are no remaining calculi in the kidneys. Left kidney is again noted to be atrophic. 3. Fibroid uterus again noted. Largest fibroid measures 3 x 3 cm. 4. Sigmoid diverticulosis without evidence of acute diverticulitis and no evidence of appendicitis. RADIATION DOSE DELIVERED: 881.39mGy.cm Total DLP DATA REPOSITORY: All CT scans at this facility are submitted to the National Radiology Data Registry (NRDR) Dose Index Registry (DIR) with the [employer] (ACR). RADIATION OPTIMIZATION: All CT scans at this facility use at least one of these dose optimization te chniques: automated exposure control; mA and/or kV adjustment per patient size (includes targeted exa ms where dose is matched to clinical indication); or iterative reconstruction.
[2024-03-24] MEDS: Normal Saline 1,000 ML 1000 ML IV ×2 (18:45→21:30)
[2024-03-24] MEDS: Ondansetron 4 MG/2 ML VIAL IVP (18:45)
[2024-03-24] MEDS: MORPHine 4 MG/ML SYR IVP (18:45)
[2024-03-24 19:04] LABS: Abs Immature Grans 0.02 10^3/uL (0.0-0.06); Absolute Basophil Count 0.07 10^3/uL (0.0-0.2); Absolute Lymphocyte Count 3.57 10^3/uL (1.2-3.4); Absolute Monocyte Count 0.56 10^3/uL (0.1-0.8); Absolute Neutrophil Count 4.86 10^3/uL (1.2-6.7); Basophils % 0.8 %; Eosinophils % 2.2 %; HGB 14.2 g/dL (11.2-15.7); Immature Grans % 0.2 %; Lymphocytes % 38.5 %; MCH 30.7 pg (27.0-33.0); MCHC 33.8 % (32.0-36.0); MCV 91 fL (80-95); MPV 9.4 fL (8.0-11.0); Neutrophils % 52.3 %; Platelet Count 240 10^3/uL (130-400); RBC 4.62 10^6/uL (3.93-5.22); RDW-SD 43.2 fL; WBC 9.28 10^3/uL (4.4-10.8)
[2024-03-24 19:13] LABS: Bilirubin Negative (Negative); Blood Moderate (Negative); Clarity Sl Cloudy (Clear); Glucose Negative (Negative); Ketones Negative (Negative); Leukocyte Esterase Negative (Negative); Nitrite Negative (Negative); Specific Gravity >= 1.030 (1.005-1.025); Urobilinogen 0.2 mg/dL (Up to 0.2); pH 5.5 (5-8)
[2024-03-24] MEDS: HYDROmorphone 2 MG/ML SYR 0.5 MG IVP (19:13)
[2024-03-24 19:20] LABS: ALT 24 U/L (14-59); AST 18 U/L (15-37); Albumin 3.5 g/dL (3.4-5.0); Alkaline Phosphatase 77 U/L (46-116); Anion Gap 11.3 mmol/L (3-11); BUN 19 mg/dL (7-18); Bilirubin, Total 0.25 mg/dL (0.2-1.0); CO2 23.7 mmol/L (21.0-32.0); CREATININE 1.2 mg/dL (0.55-1.02); Calcium 9.2 mg/dL (8.5-10.1); Chloride 105 mmol/L (98-107); Estimated GFR 50.23 (mL/min/1.73m2); Glucose 97 mg/dL (74-106); Potassium 4.3 mmol/L (3.5-5.1); Sodium 140 mmol/L (136-145); Total Protein 6.5 g/dL (6.4-8.2)
[2024-03-24 19:20] LABS: Bacteria Negative HPF (Negative); C & S Indicated? No; Crystals Many Calcium Oxalate HPF (Negative); Epithelial Cells Moderate HPF (Negative); Mucus Negative (Negative); RBC >50 HPF (0-2); WBC Negative HPF (0-5)
[2024-03-24 19:21] LABS: Lipase 277 U/L (16-77)
[2024-03-24] MEDS: Omnipaque 350 MG/ML 100 ML BTL IJ (19:22)
[2024-03-24] MEDS: Normal Saline - Diluent 50 ML VIAL IJ (19:24)
[2024-03-24] MEDS: Normal Saline Flush 10 ML SYR IJ (19:25)
--- NOTE | 2024-03-24 20:43 | DI.VRAD_ITS ---
PROCEDURE INFORMATION: Exam: CT Abdomen And Pelvis With Contrast Exam date and time: 03/24/2024 7:25 PM Age: 63 years old Clinical indication: Abdominal pain; Right; Patient HX: R flank pain TECHNIQUE: Imaging protocol: Computed tomography of the abdomen and pelvis with contrast. COMPARISON: CT ABDOMEN PELVIS W 03/05/2023 5:57 PM FINDINGS: Lungs: There is mild bibasilar atelectasis. Liver: Normal. No mass. Gallbladder and biliary ducts: Normal. No calcified stones. No ductal dilation. Pancreas: Normal. No ductal dilation. Spleen: Accessory splenic ossicle again noted. Adrenal glands: Normal. No mass. Kidneys and ureters: Left renal atrophy unchanged. Right renal perfusion appears homogeneous. There is a duplicated right renal collecting system with hydronephrosis of the lower pole moiety. There is a right UVJ 2 mm obstructing calculus series 4 image 75. Left renal stent noted. Moderate atherosclerotic change seen in the vasculature. Stomach and bowel: Fairly significant fecal retention pattern. Diverticulosis without acute diverticulitis. Appendix: No evidence of appendicitis. Intraperitoneal space: Unremarkable. No free air. No significant fluid collection. Vasculature: See Kidneys and ureters finding. Lymph nodes: Unremarkable. No enlarged lymph nodes. Urinary bladder: Unremarkable as visualized. Reproductive: Fibroid uterus. Bones/joints: Unremarkable. No acute fracture. Soft tissues: Unremarkable. IMPRESSION: Duplicated right renal collecting system with lower pole moiety right UVJ calculus. Dictated and Authenticated by: Maria Isabel Leon MD. Ordering:GRETCHEN Barragan MD
[2024-03-24] MEDS: Prochlorperazine 10 MG/2 ML VIAL 5 MG IVP (20:58)
[2024-03-24] MEDS: Naloxone 0.4 MG/ML VIAL IVP (21:41)
[2024-03-24 23:11] LABS: Lactate 1.7 mmol/L (0.6-1.4)
--- NOTE | 2024-03-24 23:38 | ED.GENADUL_ITS ---
Discharge Plan Disposition Patient Disposition: Home Discharge Details Clinical Impression: Ureterolithiasis Primary Care Provider: Larissa Cannon ED Provider: Luarel Stafford Home Meds and New Rx's Prescriptions: New oxycodone 5 mg capsule 5 mg PO Q8H PRNQty: 6 0RF ondansetron 4 mg tablet,disintegrating 4 mg PO Q8H 7 Days Qty: 21 0RF tamsulosin [Flomax] 0.4 mg capsule 0.4 mg PO DAILY Qty: 7 0RF Continued ondansetron HCl 4 mg tablet 4 mg PO Q8H PRN (Reason: nausea and vomiting) Qty: 10 0RF aspirin 81 MG tablet,delayed release (DR/EC) 81 mg PO DAILY hydroxyzine pamoate 25 mg capsule 25 mg PO DAILY lisinopril 5 mg tablet 10 mg PO DAILY duloxetine [Cymbalta] 60 mg capsule,delayed release(DR/EC) 60 mg PO DAILY Rx Instructions: take in combination with 30mg duloxetine daily for a total of 90 mgs. duloxetine 30 mg capsule,delayed release(DR/EC) 30 mg PO DAILY Rx Instructions: take with 60 mg cymbalta daily for a total of 90 mgs eszopiclone 3 mg tablet 9 mg PO .QHS Eliquis DVT-PE Treat 30D Start 5 mg (74 tabs) tablets,dose pack See Rx Instructions .ROUTE .COMPLEX Qty: 74 0RF Rx Instructions: take 10 mg by mouth twice daily for 7 days; then 5 mg twice daily amitriptyline 25 mg tablet 25 mg PO DIRECTED Patient Comments: TAKE 1 TO 2 TABLETS BY MOUTH EVERY NIGHT. REPLACE DOXEPIN Discharge Instructions Instructions: How to Strain Your Urine, Kidney Stone Diet, Kidney Stone, Adult ED Additional Instructions: take flomax as prescribed take oxycodone as needed for pain take zofran with nausea and vomiting follow-up with urology return with fever, chills, worsening pain, or with any new or progressing complaints Referrals: Delonte Jeffrey MD [ [facility] STAFF PHYSICIAN] - Larissa Cannon PA [Primary Care Provider] - 1 day Discharge Data Discharge Date/Time-TO BE ENTERED AT DEPARTURE: 03/25/24 00:55 HPI General Date/Time Provider Initiated Documentation: 03/24/24 18:39 . HPI Narrative: This 63-year-old female presents with report of right flank pain that started acutely 2 hours prior to arrival. With nausea. She states she has a history of stones and feels similar. [place] fine prior to onset of symptoms. Denies any urinary complaints. 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 Takes Eliquis secondary to protein C deficiency. Denies any chest pain or shortness of breath. Denies fever or chills. Denies rashes or lesions. Related Data Home Medications Medication Instructions Recorded Confirmed aspirin 81 mg tablet,delayed 81 mg PO DAILY 04/24/15 03/24/24 release apixaban 5 mg (74 tabs) tablets in See Rx Instructions PO .COMPLEX 11/07/19 03/24/24 a dose pack (EliCumulocity DVT-PE Treat #74 dose pk 30D Start) hydroxyzine pamoate 25 mg capsule 25 mg PO DAILY 03/23/20 03/24/24 lisinopril 5 mg tablet 10 mg PO DAILY 03/23/20 03/24/24 eszopiclone 3 mg tablet 9 mg PO .QHS 03/16/23 03/24/24 ondansetron HCl 4 mg tablet 4 mg PO Q8H PRN nausea and 04/13/23 03/24/24 vomiting #10 tabs duloxetine 30 mg capsule,delayed 30 mg PO DAILY 05/11/23 03/24/24 release duloxetine 60 mg capsule,delayed 60 mg PO DAILY 05/11/23 03/24/24 release (Cymbalta) amitriptyline 25 mg tablet 25 mg PO DIRECTED 05/26/23 03/24/24 ondansetron 4 mg disintegrating 4 mg PO Q8H 7 days #21 tabs 03/24/24 tablet oxycodone 5 mg capsule 5 mg PO Q8H PRN #6 caps 03/24/24 tamsulosin 0.4 mg capsule (Flomax) 0.4 mg PO DAILY #7 caps 03/25/24 Previous Rx's Medication Instructions Recorded apixaban 5 mg (74 tabs) tablets in See Rx Instructions PO .COMPLEX 11/07/19 a dose pack (Eliquis DVT-PE Treat #74 dose pk 30D Start) ondansetron HCl 4 mg tablet 4 mg PO Q8H PRN nausea and 07/20/23 vomiting #10 tabs ondansetron 4 mg disintegrating 4 mg PO Q8H 7 days #21 tabs 03/24/24 tablet oxycodone 5 mg capsule 5 mg PO Q8H PRN #6 caps 03/24/24 tamsulosin 0.4 mg capsule (Flomax) 0.4 mg PO DAILY #7 caps 03/25/24 Allergies Allergy/AdvReac Type Severity Reaction Status Date / Time hydromorphone [From Dilaudid] AdvReac Severe Other (See Verified 03/24/24 22:14 Comment) Sulfa (Sulfonamide AdvReac Unknown Nausea Verified 03/24/24 18:11 Antibiotics) General Stated Complaint: FlankPain ORA: 3 Exam Narrative Exam Narrative: Alert and oriented, no acute distress with reproducible right CVA tenderness, cardiac rate rhythm regular, pupils equal round reactive to light accommodation, no anterior abdominal tenderness, no pallor, diaphoresis, alert and oriented x 4, distal pulses intact, no abdominal bruit or pulsatile mass, no respiratory distress lungs clear to auscultation bilaterally Course Vital Signs Vital signs: Vital Signs Temperature 35.4 C L 03/24/24 18:11 Pulse 70 03/24/24 18:11 Respiratory Rate 18 03/24/24 18:11 Blood Pressure 152/108 H 03/24/24 18:11 Pulse Oximetry 97 03/24/24 18:11 Temperature 35.4 C L 03/24/24 18:11 Pulse 70 03/24/24 23:15 Pulse 68 03/24/24 23:15 Respiratory Rate 18 03/24/24 23:15 Respiratory Effort Normal 03/24/24 18:13 Blood Pressure 103/72 03/24/24 23:15 Blood Pressure Mean 81 03/24/24 23:15 Pulse Oximetry 97 03/24/24 18:11 Respiratory End-tidal CO2 33 03/24/24 22:11 Pain Level 10 03/24/24 18:31 Lab/Test Results Lab/Test Results: 03/24/24 23:03 Blood Blood Culture - Pending 03/24/24 22:50 Blood Blood Culture - Pending Laboratory Tests Range/Units 03/24/24 03/24/24 03/24/24 18:35 18:41 23:03 WBC (4.4-10.8) 10^3/uL 9.28 RBC (3.93-5.22) 10^6/uL 4.62 Hgb (11.2-15.7) g/dL 14.2 Hct (36.0-46.0) % 42.0 MCV (80-95) fL 91 MCH (27.0-33.0) pg 30.7 MCHC (32.0-36.0) % 33.8 RDW (11.7-14.6) % 13.0 Plt Count (130-400) 10^3/uL 240 MPV (8.0-11.0) fL 9.4 Immature Gran % % 0.2 Neutrophils % % 52.3 Lymphocytes % % 38.5 Monocytes % % 6.0 Eosinophils % % 2.2 Basophils % % 0.8 Nucleated RBC % (0.0-0.3) % 0.0 Absolute Neutrophils (1.2-6.7) 10^3/uL 4.86 Absolute Lymphocytes (1.2-3.4) 10^3/uL 3.57 H Absolute Monocytes (0.1-0.8) 10^3/uL 0.56 Absolute Eosinophils (0.0-0.7) 10^3/uL 0.20 Absolute Basophils (0.0-0.2) 10^3/uL 0.07 VBG Lactate (0.6-1.4) mmol/L 1.7 H Sodium (136-145) mmol/L 140 Potassium (3.5-5.1) mmol/L 4.3 Chloride (98-107) mmol/L 105 Carbon Dioxide (21.0-32.0) mmol/L 23.7 Anion Gap (3-11) mmol/L 11.3 H BUN (7-18) mg/dL 19 H Creatinine (0.55-1.02) mg/dL 1.2 H Est GFR (CKD-EPI 2020) (mL/min/1.73m2) 50.23 Glucose (74-106) mg/dL 97 Calcium (8.5-10.1) mg/dL 9.2 Total Bilirubin (0.2-1.0) mg/dL 0.25 AST (15-37) U/L 18 ALT (14-59) U/L 24 Alkaline Phosphatase (46-116) U/L 77 Total Protein (6.4-8.2) g/dL 6.5 Albumin (3.4-5.0) g/dL 3.5 Lipase (16-77) U/L 277 H Urine Color (Yellow) Yellow Urine Clarity (Clear) Sl Cloudy Urine pH (5-8) 5.5 Ur Specific [place] (1.005-1.025) >= 1.030 H Urine Protein (Neg-Trace) mg/dL Negative Urine Ketones (Negative) mg/dL Negative Urine Blood (Negative) Moderate H Urine Nitrite (Negative) Negative Urine Bilirubin (Negative) Negative Urine Urobilinogen (Up to 0.2) mg/dL 0.2 Ur Leukocyte Esterase (Negative) Negative Urine RBC (0-2) HPF >50 H Urine WBC (0-5) HPF Negative Ur Epithelial Cells (Negative) HPF Moderate Urine Crystals (Negative) HPF Many Calcium Oxalate Urine Bacteria (Negative) HPF Negative Urine Mucus (Negative) Negative Ur Culture Indicated? No Urine Glucose (Negative) mg/dL Negative Medical Decision Making 63-year-old female presenting with right flank pain with prior history of u reterolithiasis. Complicated by the fact that she has a single kidney. CT was ordered with contrast showing a 2 mm stone in the right UVJ.patient urinating without difficulty and no evidence of secondary infection, blood in urine only initially patient was given morphine 4 mg Without any relief of symptoms. I ordered an additional 0.5 mg of Dilaudid. Approximately 45 minutes later patient was quite diaphoretic but vitals remained stable. She states she was severely nauseated. She was given 5 mg of Compazine. Approximately half an hour later I reassessed. Patient stated that she now feels quite weak and remained diaphoretic,. recycled her blood pressure found to be 74/40, repeat 68/40. I suspect patient was having acute reaction or adverse effect of Dilaudid and immediately a second line was placed with another 1000 mL fluid bolus and Narcan was ordered. Approximately 10 minutes later patient's. Rlood pressure became improving and her exam she was observed for approximately 2 hours post Narcan and 2 L of fluid blood pressure was normalized at 119/78 patient feels marked improvement and does not have any right flank pain at this time. Creatinine is baseline for patient at 1.2 and the remainder of labs are reassuring. Profound hypotension in the setting of Dilaudid, this is listed as an acute allergy. Has not had 5 of Dilaudid is 2 hours think it is reasonable at this time with persistent normotension to discharge the patient. She is placed on list for urology follow-up, given Flomax, oxycodone which she has taken before, and Zofran.. Her daughter who is a nurse stay with her this evening although she was offered admission and declined. As her exam has markedly improved and she is completely asymptomatic at time of discharge, I think she stable for discharge. He is given very low threshold to return with new or worsening complaints. Quality:[facility] Health Related Social Needs: No Data to Display Critical Care Time Critical Care Time Attestation: 35 minutes of critical care time secondary to acute hypotension in the setting of likely adverse effect to opioid therapy, Dilaudid. Narcan and IV fluid resuscitation for necessitating Narcan and IV fluids, 2 L were required in addition to telemetry monitoring for 2 and half hours with 15-minute rechecks. PFSH All Active Problems (Updated 03/24/24 @ 23:56 by SIMONE Martin) Ureterolithiasis (Acute) Encounter for colorectal cancer screening (Acute) DVT (deep venous thrombosis) (Chronic) Leg pain, bilateral (Acute) PTSD (post-traumatic stress disorder) (Acute) Colon polyp (Acute) Uterine fibroid (Acute) Protein C deficiency (Acute) Positive colorectal cancer screening using Cologuard test (Acute) Medical History (Updated 03/24/24 @ 23:56 by SIMONE Martin) Tobacco use disorder Renal atrophy Urticaria at injection site Chronic pain of right lower extremity Tubular adenoma Acute deep vein thrombosis (DVT) of left lower extremity and in Aorta, f/u with provider, and editor in chief Dr. Andrea (last seen 2 weeks ago at time of this pre op call 05/26/23) told her to hold blood thinner for 24 hours not 48 hours, and vascular surgery MD is Dr. Mccullough (seen 1 year ago) Neuropathy Insomnia Rash, skin COVID-19 History of prediabetes Elevated lipase Chronic idiopathic urticaria Tobacco abuse Hypertension Tubular adenoma of colon History of neck pain Lumbar radiculopathy Grief at loss of child Vitamin D deficiency Left renal atrophy Protein C deficiency Osteoporosis Vitamin B12 deficiency Surgical History (System 07/03/23 @ 13:27 by Keesha Burgess) History of left oophorectomy History of tonsillectomy renal stent 2008 Tonsillectomy Oophrectomy, Left 2008 Colonoscopy - MAC (~05/2023) 2007 Family History (System 07/03/23 @ 13:27 by Keesha Burgess) Father Protein C deficiency Son Substance abuse Hx of hiatal hernia Spherocytosis Daughter Protein C deficiency Factor V Leiden carrier Paternal Grandfather Thyroid disorder Paternal Grandmother Colon cancer Other Diabetes Factor V Leiden Protein S deficiency Social History (System 07/03/23 @ 13:27 by Keesha Burgess) Smoking/Tobacco Use Status: Former Tobacco Use Quit Date: 09/25/20 Smoking risk assessment performed?: Yes Alcohol Intake: never Drug use: Never Household members: none Housing: house Number of Children: 2 current occupation: Teacher Pets and animals: Yes Pets and animals: dog(s) What is your relationship status?: Panel score (0-1 are the most socially isolated patients): 0 What type of physical activity do you participate in: walking Frequency: 5-6 times per week Seatbelt use: always Do you feel safe at home: Yes Do you feel safe in your relationship?: Yes Additional Social history: lives alone
[2024-03-24 23:52] LABS: Procalcitonin < 0.1 ng/mL
[2024-03-25] VITALS: PULSE 76; RESP 20
[2024-03-25 00:10] VITALS: PULSE 73; RESP 16
[2024-03-25 00:20] VITALS: PULSE 78; RESP 16
[2024-03-25 00:41] VITALS: BP 119/70; PULSE 77; RESP 16; TEMP 36.5; O2SAT 97
[2024-03-25] MEDS: Ondansetron O.D.T. 4 MG TABEF, 3 TABS/BTL PO (00:53)
[2024-03-25] MEDS: Tamsulosin 0.4 MG CAPCR PO (00:54)
== END 2024-03-25 00:55 | disposition home or self-care (01) ==
PROVIDERS: Emergency Provider Physician Assistant; PCP Physician Assistant Medical
DX: N20.1 Calculus of ureter (principal)
CPT/HCPCS: 36410; 36415; 80053; 83690; 84145; 87040; 96361; 96374; 96375; 99291; 74177; 81003; 81015; 83605; 85025; J0780; J1170; J2270; J2310; J2405; J3490

== ENCOUNTER → 2024-07-30 13:47 | Outpatient (BNVA) | payer MEDICARE, SELFPAY | PROVIDERS: PCP Physician Assistant Medical; Referring Provider Physician Assistant Medical; Visit Provider Nurse Practitioner Gerontology | DX: N26.1 Atrophy of kidney (terminal) (principal); N20.0 Calculus of kidney | CPT/HCPCS: 99213 ==

== ENCOUNTER 2024-08-14 01:34 | Outpatient (CLI) | payer MEDICARE, SELFPAY ==
--- NOTE | 2024-08-14 06:30 | DI.US_ITS ---
Exam(s) US RENAL EXAM: US RENAL CLINICAL HISTORY: resolution of right hydronephrosis,atrophy of kidney,calculus of kidney. TECHNIQUE: Adams scale, color and spectral Doppler were used. COMPARISON: CT CT ABDOMEN PELVIS W from 03/24/2024 FINDINGS: Right kidney: 10.9cm Echogenicity: Normal Hydronephrosis: No Cyst or mass: No Nephrolithiasis: No Left kidney: 6.3cm, extreme atrophy and parenchymal thinning. Echogenicity: Normal Hydronephrosis: No Cyst or mass: Multiple tiny cysts. Nephrolithiasis: No Bladder:Normal. Prevoid vol:138 cc Postvoid vol:0 cc IMPRESSION: Resolution of right hydronephrosis. The bladder is unremarkable. Atrophic left kidney. DATA REPOSITORY:
== END 2024-08-14 01:54 ==
LOC: DI 01:34
PROVIDERS: PCP Physician Assistant Medical; Visit Provider Nurse Practitioner Gerontology
DX: N26.1 Atrophy of kidney (terminal) (principal)
CPT/HCPCS: 76770

== ENCOUNTER → 2024-09-02 14:22 | Outpatient (BNVA) | payer MEDICARE, SELFPAY | PROVIDERS: PCP Physician Assistant Medical; Referring Provider Physician Assistant Medical; Visit Provider Nurse Practitioner Gerontology | DX: N20.0 Calculus of kidney (principal); N26.1 Atrophy of kidney (terminal) | CPT/HCPCS: 99441 ==

== ENCOUNTER 2024-09-06 10:56 | Outpatient (CLI) | payer MEDICARE, SELFPAY ==
[2024-09-06 15:31] LABS: BUN 23 mg/dL (7-18); Estimated GFR 62.52 (mL/min/1.73m2)
== END 2024-09-06 10:57 | disposition home or self-care (01) ==
LOC: LBO 11:00
PROVIDERS: PCP Physician Assistant Medical; Visit Provider Nurse Practitioner Gerontology
DX: N20.0 Calculus of kidney (principal); N26.1 Atrophy of kidney (terminal)
CPT/HCPCS: 36415; 84520; 82565

== ENCOUNTER 2024-09-17 02:55 | Outpatient (CLI) | payer MEDICARE, SELFPAY ==
--- NOTE | 2024-09-17 | DI.MAMMO_ITS ---
Exam(s) MAMMO SCREENING EXAM: MAMMO SCREENING CLINICAL HISTORY: Screening, Z12.31 TECHNIQUE: Mammograms were interpreted according to the usual protocol including computer analysis w [employer] CAD system, tomosynthesis and C-view imaging. COMPARISON: 2014 through 2021 FINDINGS: The breasts are composed of scattered fibroglandular densities, Breast Density category B. No suspicious masses or suspicious microcalcifications are seen. No skin thickening or abnormal axillary lymph nodes are seen. There has been no significant change from prior exams. IMPRESSION: BI-RADS Category 1, Negative mammogram Yearly screening mammography is recommended. Breast Density - Category B, scattered fibroglandular densities. A negative radiographic report should not delay biopsy if a dominant or clinically suspicious mass is present. Up to ten percent of cancers are not identified on mammography. A negative report may reinforce clinical impression. Adenosis and dense breasts may obscure an underlying neoplasm. False positive reports average 6 to 10%. Patient will receive a letter notifying them of these results.
== END 2024-09-17 03:15 ==
LOC: DI 02:55
PROVIDERS: PCP Physician Assistant Medical; Visit Provider Physician Assistant Medical
DX: Z12.31 Encounter for screening mammogram for malignant neoplasm of breast (principal); R92.323 Mammographic fibroglandular density, bilateral breasts
CPT/HCPCS: 77063; 77067

== ENCOUNTER 2024-10-10 00:16 | Outpatient (CLI) | payer MEDICARE, SELFPAY ==
--- NOTE | 2023-10-10 | DI.RAD_ITS ---
Exam(s) XR CHEST 2V PA LATERAL EXAM: XR CHEST 2V PA LATERAL CLINICAL HISTORY: ACUTE BRONCHITIS J20.9 TECHNIQUE: 2D digital imaging was performed. Two views. COMPARISON: CT CT CHEST LUNG CANCER SCREEN from 02/29/2024 FINDINGS: HEART: Normal size. Aorta: Not dilated. PULMONARY VASCULATURE: Normal. MEDIASTINUM: Unremarkable. LUNGS: Clear. PLEURAL SPACE: No pleural effusion or pneumothorax. BONE:Unremarkable for age. SOFT TISSUES: Unremarkable. IMPRESSION: No acute abnormality. DATA REPOSITORY: RADIATION DOSE DELIVERED:
--- NOTE | 2024-10-10 | DI.DEXA_ITS ---
Exam(s) XR DEXA BONE DENSITY W/WO CAROLE EXAM: XR DEXA BONE DENSITY W/WO CAROLE CLINICAL HISTORY: SCREENING FOR OSTEOPOROSIS IN POSTMENOPAUSAL WOMAN,Z78.0 TECHNIQUE: COMPARISON: DX DEXA BONE DENSITY WITH CAROLE from 01/02/2012 CR XR LUMBAR SPINE COMPLETE from 09/12/2019 FINDINGS: Lateral Spine Image: Unremarkable. No compression deformities identified. Left hip: Total T-Score: -2.7. This compares to -2.8 on the prior examination. Total Z-Score: -1.4 T- and Z-scores: The findings are consistent with osteoporosis. Lumbar Spine: Total T-Score: -3.3. This compares to -3.4 on the prior examination. Total Z-Score: -1.5 T- and Z-scores: The findings are consistent with osteoporosis. IMPRESSION: Osteoporosis is seen in the lumbar spine and left hip.
== END 2024-10-10 00:36 ==
LOC: DI 00:16
PROVIDERS: PCP Physician Assistant Medical; Visit Provider Physician Assistant Medical
DX: Z78.0 Asymptomatic menopausal state (principal); M81.0 Age-related osteoporosis without current pathological fracture; Z13.820 Encounter for screening for osteoporosis
CPT/HCPCS: 77080; 71046

== ENCOUNTER 2025-04-07 15:43 | Outpatient (REF) | payer MEDICARE, SELFPAY ==
[2025-04-07 17:54] LABS: Hemoglobin A1C 5.6 % (<5.7)
[2025-04-07 18:07] LABS: Anion Gap 7.1 mmol/L (3-11); BUN 18 mg/dL (7-18); CO2 26.9 mmol/L (21.0-32.0); Calcium 9.0 mg/dL (8.5-10.1); Calculated LDL 94 mg/dL (<100); Chloride 106 mmol/L (98-107); Cholesterol 194 mg/dL (<200); Estimated GFR 81.21 (mL/min/1.73m2); Ferritin 19 ng/mL (8-252); Glucose 108 mg/dL (74-106); HDL Cholesterol 76 mg/dL (>or=50); Potassium 4.5 mmol/L (3.5-5.1); Sodium 140 mmol/L (136-145); Triglyceride 121 mg/dL (<150)
[2025-04-07 19:02] LABS: Microalb ug/mg Crea 5.0 ug/mg Cr
== END 2025-04-07 15:44 | disposition home or self-care (01) ==
LOC: NCHCN 15:43
PROVIDERS: PCP Physician Assistant Medical; Visit Provider Physician Assistant Medical
DX: N18.9 Chronic kidney disease, unspecified (principal); R73.03 Prediabetes; I10 Essential (primary) hypertension; G25.81 Restless legs syndrome
CPT/HCPCS: 80048; 80061; 82043; 82570; 82728; 83036

== ENCOUNTER 2025-07-08 14:51 | Outpatient (REF) | payer MEDICARE, SELFPAY ==
[2025-07-08 17:44] LABS: HCT 45.0 % (36.0-46.0); HGB 15.0 g/dL (11.2-15.7); MCH 31.1 pg (27.0-33.0); MCHC 33.3 % (32.0-36.0); MCV 93 fL (80-95); MPV 10.1 fL (8.0-11.0); Platelet Count 194 10^3/uL (130-400); RBC 4.82 10^6/uL (3.93-5.22); RDW 13.2 % (11.7-14.6); RDW-SD 45.1 fL; WBC 7.39 10^3/uL (4.4-10.8)
[2025-07-08 17:58] LABS: Ferritin 56 ng/mL (8-252)
== END 2025-07-08 14:52 | disposition home or self-care (01) ==
LOC: NCHCN 14:51
PROVIDERS: PCP Physician Assistant Medical; Visit Provider Physician Assistant Medical
DX: G25.81 Restless legs syndrome (principal)
CPT/HCPCS: 85027; 82728

== ENCOUNTER → 2025-07-31 02:23 | Outpatient (CLI) | payer MEDICARE, SELFPAY ==
--- NOTE | 2025-07-31 | DI.CTLCSR_ITS ---
Exam(s) CT CHEST LUNG CANCER SCREEN EXAM: CT CHEST LUNG CANCER SCREEN CLINICAL HISTORY: PERS HX NICOTINE DEPENDENCE [id number] FORMER SMOKER TECHNIQUE: Imaging Protocol: Axial computed tomography images with coronal and sagittal reformatted images were created and reviewed. Lung Computer Aided Detection (CAD) was utilized. COMPARISON: CT CT ABD AORTA CTA W RUNOFF from 01/02/[address] CHEST LUNG CANCER SCREEN from 02/29/2024 CR XR CHEST 2V PA LATERAL from 10/10/2024 FINDINGS: Tracheobronchial tree: Patent where visualized. No bronchiectasis. Pulmonary parenchyma: No consolidation or dominant measurable mass. No architectural distortion. Lung Nodules: The 5 mm nodule in the periphery of the left lower lobe is stable (series 4, image 73). There are no new pulmonary nodules present. Mediastinum and [place]: No dominant adenopathy or fluid collection. The esophagus is unremarkable. Thyroid gland: Unremarkable. Lymph nodes: Unremarkable. Pleura: No effusion or pneumothorax. Heart: The heart is not dilated. No coronary artery calcifications are seen. No pericardial effusion. Aorta: Thoracic aorta non-dilated.Atherosclerotic calcification is present. Upper abdomen: Unremarkable. Soft Tissues: Unremarkable. Bones: Within normal limits. IMPRESSION: Stable 5 mm left lower lobe pulmonary nodule. There are no new pulmonary nodules. Lung RADS Cat 2 - Benign Appearance / Behavior: Nodules with a very low likelihood of becoming a clinically active cancer due to size or lack of growth Lung-RADS 1.0 CATEGORIES: Category 0 - Prior chest CT exam(s) being located for comparison. Category 1 - Annual screening in 12 months. No nodules or definitely benign nodules. Category 2 - Annual screening in 12 months. Benign appearance. Nodules with low likelihood of becoming active cancer. Category 3 - 6-month follow-up. Probably benign. Short-term follow-up suggested. Nodules with low likelihood of becoming active cancer. Category 4A - 3-month follow-up and CT/PET if >8 mm in size. Suspicious finding. Findings which require additional testing. Category 4B - Findings which require additional testing and tissue sampling. Suspicious finding. Category 4X - Category 3 or 4 nodules with additional features or imaging findings that increases the suspicion of malignancy. Modifier S- Potentially clinically significant finding. (Non lung cancer) RADIATION DOSE DELIVERED: 21.22mGy.cm Total DLP 21.22mGy.cmTotal DLP DATA REPOSITORY: All CT scans at this facility are submitted to the National Radiology Data Registry (NRDR) Dose Index Registry (DIR) with the [employer] ([employer]). RADIATION OPTIMIZATION: All CT scans at this facility use at least one of these dose optimization techniques: automated exposure control; mA and/or kV adjustment per patient size (includes targeted exams where dose is matched to clinical indication); or iterative reconstruction.
== END ==
LOC: DI 02:23
PROVIDERS: PCP Physician Assistant Medical; Visit Provider Physician Assistant Medical
DX: Z87.891 Personal history of nicotine dependence (principal)
CPT/HCPCS: 71271

== ENCOUNTER → 2025-08-28 00:11 | Outpatient (CLI) | payer MEDICARE, SELFPAY ==
--- NOTE | 2025-08-28 | DI.US_ITS ---
Exam(s) US RENAL EXAM: US RENAL CLINICAL HISTORY: monitoring for calculi and atrophic kidney,n20.0,n26.1 TECHNIQUE: Ultrasound of both kidneys performed using standard protocol. COMPARISON: CT CT ABDOMEN PELVIS W from 03/24/2024 US US RENAL from 08/14/2024 FINDINGS: RIGHT KIDNEY: Measures 12 cm in length. No cysts evident. Normal cortical thickness and corticomedullary differentiation .No solid masses No intrarenal calculi nor hydronephrosis. LEFT KIDNEY: Not visualized. This is known to be significantly atrophic, as seen on CT scan of February 2024. URINARY BLADDER: Prevoid volume is 256 cc Postvoid volume is 11 cc No evidence of bladder mass nor diverticuli. Ureterovesical jets: Both identified. IMPRESSION: 1. No significant findings in the normal size right kidney. No hydronephrosis. 2. Left kidney is not able to be identified and is known to be severely atrophic, as seen on prior CT scan. 3. There is no obvious abnormality in the urinary bladder. DATA REPOSITORY:
== END ==
LOC: DI 00:11
PROVIDERS: PCP Physician Assistant Medical; Visit Provider Nurse Practitioner Gerontology
DX: N26.1 Atrophy of kidney (terminal) (principal); N20.0 Calculus of kidney
CPT/HCPCS: 76770

== ENCOUNTER 2025-09-01 01:21 | Outpatient (CLI) | payer MEDICARE, MEDICAID, SELFPAY ==
[2025-09-01 11:39] LABS: BUN 20 mg/dL (9-23)
== END 2025-09-01 01:22 | disposition home or self-care (01) ==
PROVIDERS: PCP Physician Assistant Medical; Visit Provider Nurse Practitioner Gerontology
DX: N26.1 Atrophy of kidney (terminal) (principal); N20.0 Calculus of kidney; Z79.01 Long term (current) use of anticoagulants; D68.59 Other primary thrombophilia
CPT/HCPCS: 36415; 84520; 82565

== ENCOUNTER → 2025-09-08 10:05 | Outpatient (BNVA) | payer MEDICARE, SELFPAY | PROVIDERS: PCP Physician Assistant Medical; Referring Provider Physician Assistant Medical; Visit Provider Nurse Practitioner Gerontology | DX: N26.1 Atrophy of kidney (terminal) (principal); N20.0 Calculus of kidney | CPT/HCPCS: 99213 ==